=== PATIENT | male | born 1975 | race Two or more races ===

== ENCOUNTER 2021-01-08 13:34 | Inpatient (IN) | payer OTHER ==
[2021-01-08 19:24] VITALS: BMI 29.5
[2021-01-08] MEDS ORDERED: MAGNESIUM HYDROX 2400MG/30ML ORAL SUSPENSION 30 ML CUP PO PRN (20:12)
[2021-01-08] MEDS ORDERED: MAGNESIUM CITRATE 300 ML BOTTLE PO PRN (20:12)
[2021-01-08] MEDS ORDERED: MAG HYDROX/AL HYDROX/SIMETH 30 ML UNIT-DOSE CUP PO PRN (20:12)
[2021-01-08] MEDS ORDERED: BISMUTH SUBSALICYLATE 524 MG/30 ML PO PRN (20:12)
[2021-01-08] MEDS ORDERED: ACETAMINOPHEN 325 MG TABLET (FP) PO PRN (20:12)
[2021-01-08] MEDS ORDERED: MENTHOL/PHENOL 1 EACH UD MM PRN (20:12)
[2021-01-08] MEDS ORDERED: ONDANSETRON *ODT* 4 MG TABLET SL PRN (20:12)
[2021-01-08] MEDS ORDERED: methaDONE HCL 10 MG TABLET (FOR DETOX USE ONLY) PO ONE (20:25)
[2021-01-08] MEDS ORDERED: cloNIDine HCL 0.1 MG TABLET PO PRN (20:25)
[2021-01-09 08:32] LABS: HEMATOCRIT 43.3 % (35.4-49); HEMOGLOBIN 14.9 GM/dL (11.7-16.9); MCH 30.8 pg (25.7-33.7); MCHC 34.5 g/dl (32.0-35.9); MEAN CELL VOLUME 89.5 fl (80-96); MEAN PLT VOLUME 8.2 fl (7.5-11.1); PLATELET COUNT 232 10^3/uL (134-434); RBC 4.84 M/mm3 (4.00-5.60); WHITE BLOOD COUNT 7.7 K/mm3 (4.0-10.0)
[2021-01-09 09:20] LABS: ALBUMIN 3.5 g/dl (3.4-5.0); BILIRUBIN,TOTAL 0.7 mg/dL (0.2-1); BLOOD UREA NITROGEN 8.9 mg/dL (7-18); CALCIUM 8.8 mg/dL (8.5-10.1); CREATININE 0.9 mg/dL (0.55-1.3); TOT PROT 6.5 g/dl (6.4-8.2)
[2021-01-09] MEDS ORDERED: methaDONE HCL 10 MG TABLET (FOR DETOX USE ONLY) ONE (09:45)
[2021-01-09] MEDS: methaDONE HCL 10 MG TABLET (FOR DETOX USE ONLY) PO ONE ×2 (09:55→13:02)
[2021-01-09] MEDS: NICOTINE 21 MG/24 HOURS TOPICAL PATCH TD SCH (09:57)
[2021-01-09] MEDS: PRENATAL VITAMINS W/ FOLIC ACID TABLET (FP) PO SCH (09:57)
[2021-01-09] MEDS: MELATONIN 5 MG TABLETS PO SCH ×2 (13:25→22:54)
[2021-01-09] MEDS: THIAMINE HCL 100 MG TABLET (FP) PO SCH ×2 (13:26→22:54)
[2021-01-09] MEDS: METHOCARBAMOL 500 MG TABLET PO PRN (18:34)
[2021-01-09] MEDS: NICOTINE POLACRILEX 2 MG GUM BUC PRN (18:36)
[2021-01-10] MEDS ORDERED: methaDONE HCL 10 MG TABLET (FOR DETOX USE ONLY) ONE (10:10)
[2021-01-10] MEDS: METHOCARBAMOL 500 MG TABLET PO PRN ×2 (11:02→17:50)
[2021-01-10] MEDS: PRENATAL VITAMINS W/ FOLIC ACID TABLET (FP) PO SCH (11:02)
[2021-01-10] MEDS: NICOTINE 21 MG/24 HOURS TOPICAL PATCH TD SCH (11:29)
[2021-01-10] MEDS: NICOTINE POLACRILEX 2 MG GUM BUC PRN (17:51)
[2021-01-10] MEDS: THIAMINE HCL 100 MG TABLET (FP) PO SCH (22:36)
[2021-01-10] MEDS: MELATONIN 5 MG TABLETS PO SCH (22:39)
[2021-01-11] MEDS: ACETAMINOPHEN 325 MG TABLET (FP) PO PRN ×2 (09:16→17:30)
[2021-01-11] MEDS: METHOCARBAMOL 500 MG TABLET PO PRN ×3 (09:16→23:29)
[2021-01-11] MEDS ORDERED: methaDONE HCL 10 MG TABLET (FOR DETOX USE ONLY) PO ONE (10:00)
[2021-01-11] MEDS: NICOTINE 21 MG/24 HOURS TOPICAL PATCH TD SCH (12:05)
[2021-01-11] MEDS: PRENATAL VITAMINS W/ FOLIC ACID TABLET (FP) PO SCH (12:05)
[2021-01-11] MEDS ORDERED: methaDONE HCL 10 MG TABLET PO ONE (18:21)
[2021-01-11] MEDS: THIAMINE HCL 100 MG TABLET (FP) PO SCH (22:52)
[2021-01-11] MEDS: MELATONIN 5 MG TABLETS PO SCH ×2 (22:52→23:29)
[2021-01-12] MEDS ORDERED: methaDONE HCL 10 MG TABLET (FOR DETOX USE ONLY) ONE (08:53)
[2021-01-12] MEDS: NICOTINE 21 MG/24 HOURS TOPICAL PATCH TD SCH (09:08)
[2021-01-12] MEDS: PRENATAL VITAMINS W/ FOLIC ACID TABLET (FP) PO SCH (09:08)
[2021-01-12] MEDS: METHOCARBAMOL 500 MG TABLET PO PRN ×2 (09:08→17:30)
[2021-01-12] MEDS ORDERED: POTASSIUM CHLORIDE TABS 20 MEQ TABLET.ER (FP) PO ONE (11:09)
[2021-01-12] MEDS: LIDOCAINE 5% TOPICAL PATCH TP SCH (12:02)
[2021-01-12] MEDS: diazePAM 5 MG TABLET PO PRN ×2 (12:02→17:30)
[2021-01-12] MEDS: NICOTINE POLACRILEX 2 MG GUM BUC PRN (17:36)
[2021-01-12] MEDS ORDERED: LIDOCAINE PATCH REMOVAL MC SCH (22:00)
[2021-01-12] MEDS: THIAMINE HCL 100 MG TABLET (FP) PO SCH (22:18)
[2021-01-12] MEDS: MELATONIN 5 MG TABLETS PO SCH (22:18)
[2021-01-13 09:55] VITALS: BP 125/85; PULSE 77; TEMP 96.9
[2021-01-13] MEDS ORDERED: methaDONE HCL 10 MG TABLET (FOR DETOX USE ONLY) PO ONE (10:00)
[2021-01-13] MEDS: LIDOCAINE 5% TOPICAL PATCH TP SCH (10:22)
[2021-01-13] MEDS: NICOTINE 21 MG/24 HOURS TOPICAL PATCH TD SCH (10:23)
[2021-01-13] MEDS: PRENATAL VITAMINS W/ FOLIC ACID TABLET (FP) PO SCH (10:23)
[2021-01-13] MEDS: METHOCARBAMOL 500 MG TABLET PO PRN (10:24)
== END 2021-01-13 11:29 | disposition home or self-care (01) | DRG 773 ==
LOC: YASAS 13:34 → Y3N 01-09 11:56
PROVIDERS: ADMIT Allergy & Immunology; ATTEND Allergy & Immunology
PROC: HZ2ZZZZ Detoxification Services for Substance Abuse Treatment (ICD-10-PCS; principal; 2021-01-09)
DX: F11.23 Opioid dependence with withdrawal (principal); F10.20 Alcohol dependence, uncomplicated; F14.20 Cocaine dependence, uncomplicated; F17.210 Nicotine dependence, cigarettes, uncomplicated; E87.6 Hypokalemia; Z88.6 Allergy status to analgesic agent; Z91.018 Allergy to other foods
CPT/HCPCS: 36415; 80053; 84132; 85027; 86780; 93005; 93010; C9803; J0735; U0003; U0005

== ENCOUNTER 2021-02-22 12:07 | Inpatient (IN) | payer OTHER ==
[2021-02-22 13:20] VITALS: BMI 28.7
[2021-02-22] MEDS ORDERED: methaDONE HCL 10 MG TABLET (FOR DETOX USE ONLY) PO ONE (15:13)
[2021-02-22] MEDS ORDERED: MENTHOL/PHENOL 1 EACH UD MM PRN (15:13)
[2021-02-22] MEDS ORDERED: MAG HYDROX/AL HYDROX/SIMETH 30 ML UNIT-DOSE CUP PO PRN (15:13)
[2021-02-22] MEDS ORDERED: ACETAMINOPHEN 325 MG TABLET (FP) PO PRN ×2 (15:13)
[2021-02-22] MEDS ORDERED: MAGNESIUM CITRATE 300 ML BOTTLE PO PRN (15:13)
[2021-02-22] MEDS ORDERED: cloNIDine HCL 0.1 MG TABLET PO PRN (15:13)
[2021-02-22] MEDS ORDERED: MAGNESIUM HYDROX 2400MG/30ML ORAL SUSPENSION 30 ML CUP PO PRN (15:13)
[2021-02-22] MEDS ORDERED: NALOXONE (NARCAN) HCL 4 MG/0.1 ML SPRAY NS PRN (15:13)
[2021-02-22] MEDS ORDERED: NICOTINE 10 MG CARTRIDGE (INHALER) IH PRN (15:13)
[2021-02-22] MEDS: diazePAM 5 MG TABLET PO SCH ×2 (16:32→22:07)
[2021-02-22] MEDS: NICOTINE POLACRILEX 2 MG GUM BUC PRN ×2 (18:38→21:02)
[2021-02-22] MEDS: diazePAM 5 MG TABLET PO PRN (19:47)
[2021-02-22] MEDS: METHOCARBAMOL 500 MG TABLET PO PRN (22:07)
[2021-02-22] MEDS: MELATONIN 5 MG TABLETS PO SCH (22:07)
[2021-02-22] MEDS: THIAMINE HCL 100 MG TABLET (FP) PO SCH (22:07)
[2021-02-23] MEDS: diazePAM 5 MG TABLET PO SCH ×4 (05:05→22:00)
[2021-02-23] MEDS ORDERED: methaDONE HCL 10 MG TABLET (FOR DETOX USE ONLY) ONE (09:07)
[2021-02-23] MEDS: PRENATAL VITAMINS W/ FOLIC ACID TABLET (FP) PO SCH (10:07)
[2021-02-23 10:54] LABS: HEMATOCRIT 42.4 % (35.4-49); HEMOGLOBIN 14.4 GM/dL (11.7-16.9); MCH 31.5 pg (25.7-33.7); MCHC 33.9 g/dl (32.0-35.9); MEAN CELL VOLUME 92.9 fl (80-96); MEAN PLT VOLUME 8.3 fl (7.5-11.1); PLATELET COUNT 219 10^3/uL (134-434); RBC 4.57 M/mm3 (4.00-5.60); RDW 14.9 % (11.9-15.9); WHITE BLOOD COUNT 8.5 K/mm3 (4.0-10.0)
[2021-02-23] MEDS: NICOTINE POLACRILEX 2 MG GUM BUC PRN ×4 (11:08→22:02)
[2021-02-23 11:13] LABS: ALBUMIN 2.8 g/dl (3.4-5.0); BLOOD UREA NITROGEN 7.6 mg/dL (7-18)
[2021-02-23 11:16] LABS: CREATININE 0.8 mg/dL (0.55-1.3)
[2021-02-23 11:17] LABS: BILIRUBIN,TOTAL 0.3 mg/dL (0.2-1); TOT PROT 5.6 g/dl (6.4-8.2)
[2021-02-23] MEDS: diazePAM 5 MG TABLET PO PRN (13:16)
[2021-02-23] MEDS: THIAMINE HCL 100 MG TABLET (FP) PO SCH (22:00)
[2021-02-23] MEDS: MELATONIN 5 MG TABLETS PO SCH (22:00)
[2021-02-23] MEDS: METHOCARBAMOL 500 MG TABLET PO PRN (22:01)
[2021-02-24] MEDS: diazePAM 5 MG TABLET PO SCH ×3 (05:05→22:04)
[2021-02-24] MEDS: NICOTINE POLACRILEX 2 MG GUM BUC PRN ×5 (05:07→22:07)
[2021-02-24] MEDS ORDERED: methaDONE HCL 10 MG TABLET (FOR DETOX USE ONLY) PO ONE (10:00)
[2021-02-24] MEDS: PRENATAL VITAMINS W/ FOLIC ACID TABLET (FP) PO SCH (10:10)
[2021-02-24] MEDS: METHOCARBAMOL 500 MG TABLET PO PRN ×2 (10:10→22:06)
[2021-02-24] MEDS: diazePAM 5 MG TABLET PO PRN (17:41)
[2021-02-24] MEDS: THIAMINE HCL 100 MG TABLET (FP) PO SCH (22:04)
[2021-02-24] MEDS: MELATONIN 5 MG TABLETS PO SCH (22:04)
[2021-02-25] MEDS: diazePAM 5 MG TABLET PO SCH ×2 (05:34→17:41)
[2021-02-25] MEDS: NICOTINE POLACRILEX 2 MG GUM BUC PRN ×5 (05:36→22:06)
[2021-02-25] MEDS ORDERED: methaDONE HCL 10 MG TABLET (FOR DETOX USE ONLY) ONE (08:57)
[2021-02-25] MEDS: PRENATAL VITAMINS W/ FOLIC ACID TABLET (FP) PO SCH (10:19)
[2021-02-25] MEDS: diazePAM 5 MG TABLET PO PRN ×2 (10:23→14:48)
[2021-02-25] MEDS: METHOCARBAMOL 500 MG TABLET PO PRN (22:04)
[2021-02-25] MEDS: MELATONIN 5 MG TABLETS PO SCH (22:04)
[2021-02-25] MEDS: THIAMINE HCL 100 MG TABLET (FP) PO SCH (22:04)
[2021-02-26] MEDS ORDERED: diazePAM 5 MG TABLET PO ONE (06:00)
[2021-02-26] MEDS ORDERED: methaDONE HCL 10 MG TABLET (FOR DETOX USE ONLY) PO ONE (10:00)
[2021-02-26] MEDS: PRENATAL VITAMINS W/ FOLIC ACID TABLET (FP) PO SCH (10:09)
[2021-02-26] MEDS: NICOTINE POLACRILEX 2 MG GUM BUC PRN ×4 (12:01→22:27)
[2021-02-26] MEDS: MELATONIN 5 MG TABLETS PO SCH (22:27)
[2021-02-26] MEDS: THIAMINE HCL 100 MG TABLET (FP) PO SCH (22:27)
[2021-02-26] MEDS: METHOCARBAMOL 500 MG TABLET PO PRN (22:27)
[2021-02-27 08:49] VITALS: BP 124/73; PULSE 75; TEMP 96.9
== END 2021-02-27 09:55 | disposition home or self-care (01) | DRG 773 ==
LOC: YASAS 12:07 → Y3N 15:33
PROVIDERS: ADMIT Allergy & Immunology; ATTEND Allergy & Immunology
PROC: HZ2ZZZZ Detoxification Services for Substance Abuse Treatment (ICD-10-PCS; principal; 2021-02-22)
DX: F11.23 Opioid dependence with withdrawal (principal); F10.230 Alcohol dependence with withdrawal, uncomplicated; F14.20 Cocaine dependence, uncomplicated; F13.20 Sedative, hypnotic or anxiolytic dependence, uncomplicated; F17.210 Nicotine dependence, cigarettes, uncomplicated; F19.24 Other psychoactive substance dependence with psychoactive substance-induced mood disorder; G47.00 Insomnia, unspecified; M54.50 Low back pain, unspecified; G89.29 Other chronic pain; Z56.0 Unemployment, unspecified; Z59.00 Homelessness unspecified; Z88.6 Allergy status to analgesic agent
CPT/HCPCS: 36415; 80053; 85027; 86780; C9803; U0003; U0005

== ENCOUNTER 2022-01-15 16:54 | Inpatient (IN) | payer OTHER ==
[2022-01-15 21:16] VITALS: BMI 30.1
[2022-01-16] MEDS ORDERED: methaDONE HCL 10 MG TABLET (FOR DETOX USE ONLY) PO ONE (01:11)
[2022-01-16] MEDS ORDERED: ACETAMINOPHEN 325 MG TABLET (FP) PO PRN (01:11)
[2022-01-16] MEDS ORDERED: BENZOCAINE/MENTHOL (CHLORASEPTIC ) LOZENGE MM PRN (01:11)
[2022-01-16] MEDS ORDERED: NALOXONE HCL (KLOXXADO) 8 MG SPRAY NS PRN (01:11)
[2022-01-16] MEDS ORDERED: MAGNESIUM CITRATE 300 ML BOTTLE PO PRN (01:11)
[2022-01-16] MEDS ORDERED: MAGNESIUM HYDROX 2400MG/30ML ORAL SUSPENSION 30 ML CUP PO PRN (01:11)
[2022-01-16] MEDS ORDERED: LOPERAMIDE HCL 2 MG CAPSULE PO PRN (01:11)
[2022-01-16] MEDS ORDERED: MAG HYDROX/AL HYDROX/SIMETH 30 ML UNIT-DOSE CUP PO PRN (01:11)
[2022-01-16] MEDS ORDERED: DICYCLOMINE HCL 10 MG CAPSULE PO PRN (01:11)
[2022-01-16] MEDS: NICOTINE 14 MG/24 HOURS TOPICAL PATCH TD SCH (11:03)
[2022-01-16] MEDS: PRENATAL VITAMINS W/ FOLIC ACID TABLET (FP) PO SCH (11:04)
[2022-01-16] MEDS: NICOTINE POLACRILEX 2 MG GUM BUC PRN (17:05)
[2022-01-16] MEDS: THIAMINE HCL 100 MG TABLET (FP) PO SCH (22:48)
[2022-01-16] MEDS: MELATONIN 5 MG TABLETS PO SCH (22:48)
[2022-01-16] MEDS: METHOCARBAMOL 500 MG TABLET PO PRN (22:48)
[2022-01-17] MEDS: cloNIDine HCL 0.1 MG TABLET PO PRN ×2 (05:46→12:21)
[2022-01-17] MEDS: NICOTINE 14 MG/24 HOURS TOPICAL PATCH TD SCH (10:43)
[2022-01-17] MEDS: PRENATAL VITAMINS W/ FOLIC ACID TABLET (FP) PO SCH (10:43)
[2022-01-17] MEDS: METHOCARBAMOL 500 MG TABLET PO PRN ×2 (12:21→22:33)
[2022-01-17] MEDS ORDERED: hydrOXYzine PAMOATE 50 MG CAPSULE (FP) PO ONE (12:22)
[2022-01-17] MEDS: NICOTINE POLACRILEX 2 MG GUM BUC PRN ×4 (12:23→22:34)
[2022-01-17 13:31] LABS: HEMATOCRIT 43.5 % (35.4-49); HEMOGLOBIN 14.7 GM/dL (11.7-16.9); MCH 31.1 pg (25.7-33.7); MCHC 33.8 g/dl (32.0-35.9); MEAN CELL VOLUME 91.9 fl (80-96); PLATELET COUNT 242 10^3/uL (134-434); RBC 4.73 M/mm3 (4.00-5.60); RDW 14.2 % (11.9-15.9); WHITE BLOOD COUNT 10.3 K/mm3 (4.0-10.0)
[2022-01-17 13:33] LABS: ALBUMIN 3.3 g/dl (3.4-5.0); BLOOD UREA NITROGEN 7.6 mg/dL (7-18); CALCIUM 8.9 mg/dL (8.5-10.1)
[2022-01-17 13:38] LABS: BILIRUBIN,TOTAL 0.4 mg/dL (0.2-1); TOT PROT 5.7 g/dl (6.4-8.2)
[2022-01-17] MEDS: MELATONIN 5 MG TABLETS PO SCH (22:31)
[2022-01-17] MEDS: THIAMINE HCL 100 MG TABLET (FP) PO SCH (22:31)
[2022-01-17] MEDS: hydrOXYzine PAMOATE 25 MG CAPSULE (FP) PO PRN (22:32)
[2022-01-18] MEDS ORDERED: methaDONE HCL 10 MG TABLET (FOR DETOX USE ONLY) PO ONE (10:00)
[2022-01-18] MEDS: PRENATAL VITAMINS W/ FOLIC ACID TABLET (FP) PO SCH (10:38)
[2022-01-18] MEDS: NICOTINE 14 MG/24 HOURS TOPICAL PATCH TD SCH (10:38)
[2022-01-18] MEDS: METHOCARBAMOL 500 MG TABLET PO PRN ×2 (10:40→20:05)
[2022-01-18] MEDS: ACETAMINOPHEN 325 MG TABLET (FP) PO PRN (10:41)
[2022-01-18] MEDS: NICOTINE POLACRILEX 2 MG GUM BUC PRN ×4 (12:01→22:35)
[2022-01-18] MEDS: cloNIDine HCL 0.1 MG TABLET PO PRN (15:53)
[2022-01-18] MEDS: diazePAM 5 MG TABLET PO PRN ×2 (15:54→20:05)
[2022-01-18] MEDS: MELATONIN 5 MG TABLETS PO SCH (22:33)
[2022-01-18] MEDS: THIAMINE HCL 100 MG TABLET (FP) PO SCH (22:34)
[2022-01-18] MEDS: hydrOXYzine PAMOATE 25 MG CAPSULE (FP) PO PRN (22:34)
[2022-01-19] MEDS: NICOTINE 14 MG/24 HOURS TOPICAL PATCH TD SCH (10:10)
[2022-01-19] MEDS: ACETAMINOPHEN 325 MG TABLET (FP) PO PRN (10:13)
[2022-01-19] MEDS: METHOCARBAMOL 500 MG TABLET PO PRN ×2 (10:14→22:31)
[2022-01-19] MEDS: PRENATAL VITAMINS W/ FOLIC ACID TABLET (FP) PO SCH (11:19)
[2022-01-19] MEDS: diazePAM 5 MG TABLET PO PRN ×2 (12:44→22:31)
[2022-01-19] MEDS: hydrOXYzine PAMOATE 25 MG CAPSULE (FP) PO PRN ×2 (12:46→22:31)
[2022-01-19] MEDS: NICOTINE POLACRILEX 2 MG GUM BUC PRN (12:48)
[2022-01-19] MEDS: MELATONIN 5 MG TABLETS PO SCH (22:31)
[2022-01-19] MEDS: THIAMINE HCL 100 MG TABLET (FP) PO SCH (22:32)
[2022-01-20] MEDS ORDERED: methaDONE HCL 10 MG TABLET (FOR DETOX USE ONLY) PO ONE (10:00)
[2022-01-20] MEDS: PRENATAL VITAMINS W/ FOLIC ACID TABLET (FP) PO SCH (10:46)
[2022-01-20] MEDS: NICOTINE 14 MG/24 HOURS TOPICAL PATCH TD SCH (10:47)
[2022-01-20] MEDS: LIDOCAINE 5% TOPICAL PATCH TP SCH (10:53)
[2022-01-20] MEDS ORDERED: diazePAM 5 MG TABLET PO ONE (11:15)
[2022-01-20] MEDS: NICOTINE POLACRILEX 2 MG GUM BUC PRN ×4 (12:29→22:35)
[2022-01-20 21:18] VITALS: RESP 18
[2022-01-20] MEDS ORDERED: LIDOCAINE PATCH REMOVAL MC SCH (22:00)
[2022-01-20] MEDS: hydrOXYzine PAMOATE 25 MG CAPSULE (FP) PO PRN (22:33)
[2022-01-20] MEDS: THIAMINE HCL 100 MG TABLET (FP) PO SCH (22:33)
[2022-01-20] MEDS: MELATONIN 5 MG TABLETS PO SCH (22:34)
[2022-01-20] MEDS: METHOCARBAMOL 500 MG TABLET PO PRN (22:35)
[2022-01-21 09:46] VITALS: BP 141/87; PULSE 74; TEMP 97.5
[2022-01-21] MEDS: LIDOCAINE 5% TOPICAL PATCH TP SCH (11:21)
[2022-01-21] MEDS: NICOTINE 14 MG/24 HOURS TOPICAL PATCH TD SCH (11:21)
[2022-01-21] MEDS: PRENATAL VITAMINS W/ FOLIC ACID TABLET (FP) PO SCH (11:22)
== END 2022-01-21 10:52 | disposition home or self-care (01) | DRG 773 ==
LOC: YASAS 16:54 → Y6N 01-16 01:23
PROVIDERS: ADMIT Allergy & Immunology; ATTEND Surgery
PROC: HZ2ZZZZ Detoxification Services for Substance Abuse Treatment (ICD-10-PCS; principal; 2022-01-16)
DX: F11.23 Opioid dependence with withdrawal (principal); F14.20 Cocaine dependence, uncomplicated; F17.210 Nicotine dependence, cigarettes, uncomplicated; M54.50 Low back pain, unspecified; G89.29 Other chronic pain; Z88.6 Allergy status to analgesic agent
CPT/HCPCS: 36415; 80053; 85027; 86780; 93005; 93010; C9803-CS; U0003; U0005

== ENCOUNTER 2022-03-04 10:02 | Inpatient (IN) | payer OTHER ==
[2022-03-04 12:51] VITALS: BMI 24.3
[2022-03-04] MEDS ORDERED: MAG HYDROX/AL HYDROX/SIMETH 30 ML UNIT-DOSE CUP PO PRN (14:46)
[2022-03-04] MEDS ORDERED: BENZOCAINE/MENTHOL (CHLORASEPTIC ) LOZENGE MM PRN (14:46)
[2022-03-04] MEDS ORDERED: hydrOXYzine PAMOATE 25 MG CAPSULE (FP) PO PRN (14:46)
[2022-03-04] MEDS ORDERED: ONDANSETRON *ODT* 4 MG TABLET SL PRN (14:46)
[2022-03-04] MEDS ORDERED: NALOXONE HCL (KLOXXADO) 8 MG SPRAY NS PRN (14:46)
[2022-03-04] MEDS ORDERED: DICYCLOMINE HCL 10 MG CAPSULE PO PRN (14:46)
[2022-03-04] MEDS ORDERED: NICOTINE 10 MG CARTRIDGE (INHALER) IH PRN (14:46)
[2022-03-04] MEDS ORDERED: MAGNESIUM HYDROX 2400MG/30ML ORAL SUSPENSION 30 ML CUP PO PRN (14:46)
[2022-03-04] MEDS ORDERED: ACETAMINOPHEN 325 MG TABLET (FP) PO PRN ×2 (14:46)
[2022-03-04] MEDS ORDERED: MAGNESIUM CITRATE 300 ML BOTTLE PO PRN (14:46)
[2022-03-04] MEDS ORDERED: LOPERAMIDE HCL 2 MG CAPSULE PO PRN (14:46)
[2022-03-04] MEDS ORDERED: hydrOXYzine PAMOATE 25 MG CAPSULE (FP) PO ONE (18:01)
[2022-03-04] MEDS ORDERED: methaDONE HCL 10 MG TABLET (FOR DETOX USE ONLY) PO ONE (18:21)
[2022-03-04] MEDS ORDERED: chlordiazePOXIDE HCL 25 MG CAPSULE PO PRN (18:21)
[2022-03-04] MEDS ORDERED: cloNIDine HCL 0.1 MG TABLET PO PRN (18:21)
[2022-03-04] MEDS ORDERED: chlordiazePOXIDE HCL 25 MG CAPSULE PO ONE (18:21)
[2022-03-04] MEDS: MELATONIN 5 MG TABLETS PO SCH (22:03)
[2022-03-04] MEDS: THIAMINE HCL 100 MG TABLET (FP) PO SCH (22:03)
[2022-03-04] MEDS ORDERED: chlordiazePOXIDE HCL 25 MG CAPSULE ONE (22:17)
[2022-03-04] MEDS: chlordiazePOXIDE HCL 25 MG CAPSULE PO SCH (22:17)
[2022-03-05] MEDS ORDERED: chlordiazePOXIDE HCL 25 MG CAPSULE ONE (05:38)
[2022-03-05] MEDS: chlordiazePOXIDE HCL 25 MG CAPSULE PO SCH ×4 (05:38→22:49)
[2022-03-05] MEDS: PRENATAL VITAMINS W/ FOLIC ACID TABLET (FP) PO SCH (10:38)
[2022-03-05] MEDS: NICOTINE POLACRILEX 2 MG GUM BUC PRN ×4 (10:38→20:58)
[2022-03-05] MEDS: METHOCARBAMOL 500 MG TABLET PO PRN ×2 (10:38→19:52)
[2022-03-05] MEDS: THIAMINE HCL 100 MG TABLET (FP) PO SCH (22:49)
[2022-03-05] MEDS: MELATONIN 5 MG TABLETS PO SCH (22:49)
[2022-03-06] MEDS: chlordiazePOXIDE HCL 25 MG CAPSULE PO SCH ×4 (06:18→22:35)
[2022-03-06] MEDS ORDERED: methaDONE HCL 10 MG TABLET (FOR DETOX USE ONLY) PO ONE (10:00)
[2022-03-06] MEDS: PRENATAL VITAMINS W/ FOLIC ACID TABLET (FP) PO SCH (10:52)
[2022-03-06] MEDS: METHOCARBAMOL 500 MG TABLET PO PRN (10:52)
[2022-03-06 13:06] LABS: HEMATOCRIT 47.2 % (35.4-49); HEMOGLOBIN 15.7 GM/dL (11.7-16.9); MCH 31.5 pg (25.7-33.7); MCHC 33.3 g/dl (32.0-35.9); MEAN CELL VOLUME 94.6 fl (80-96); MEAN PLT VOLUME 8.5 fl (7.5-11.1); PLATELET COUNT 239 10^3/uL (134-434); RBC 4.99 M/mm3 (4.00-5.60); RDW 14.6 % (11.9-15.9); WHITE BLOOD COUNT 6.9 K/mm3 (4.0-10.0)
[2022-03-06 13:13] LABS: ALBUMIN 3.4 g/dl (3.4-5.0); CALCIUM 9.7 mg/dL (8.5-10.1)
[2022-03-06 13:16] LABS: CREATININE 0.8 mg/dL (0.55-1.3)
[2022-03-06 13:17] LABS: TOT PROT 6.1 g/dl (6.4-8.2)
[2022-03-06 13:18] LABS: BILIRUBIN,TOTAL 0.4 mg/dL (0.2-1)
[2022-03-06] MEDS: NICOTINE POLACRILEX 2 MG GUM BUC PRN ×2 (13:28→17:50)
[2022-03-06] MEDS: MELATONIN 5 MG TABLETS PO SCH (22:35)
[2022-03-06] MEDS: THIAMINE HCL 100 MG TABLET (FP) PO SCH (22:36)
[2022-03-07] MEDS ORDERED: chlordiazePOXIDE HCL 10 MG CAPSULE PO PRN
[2022-03-07] MEDS: chlordiazePOXIDE HCL 10 MG CAPSULE PO SCH ×4 (05:54→22:07)
[2022-03-07] MEDS: NICOTINE POLACRILEX 2 MG GUM BUC PRN ×3 (08:30→20:33)
[2022-03-07] MEDS: PRENATAL VITAMINS W/ FOLIC ACID TABLET (FP) PO SCH (10:24)
[2022-03-07] MEDS: MELATONIN 5 MG TABLETS PO SCH (22:06)
[2022-03-07] MEDS: THIAMINE HCL 100 MG TABLET (FP) PO SCH (22:07)
[2022-03-07] MEDS: METHOCARBAMOL 500 MG TABLET PO PRN (22:07)
[2022-03-08] MEDS: chlordiazePOXIDE HCL 10 MG CAPSULE PO SCH ×2 (06:21→17:36)
[2022-03-08] MEDS ORDERED: methaDONE HCL 10 MG TABLET (FOR DETOX USE ONLY) PO ONE (10:00)
[2022-03-08] MEDS: PRENATAL VITAMINS W/ FOLIC ACID TABLET (FP) PO SCH (10:36)
[2022-03-08] MEDS: METHOCARBAMOL 500 MG TABLET PO PRN (10:36)
[2022-03-08] MEDS: NICOTINE POLACRILEX 2 MG GUM BUC PRN ×3 (10:38→22:36)
[2022-03-08] MEDS: MELATONIN 5 MG TABLETS PO SCH (22:29)
[2022-03-08] MEDS: THIAMINE HCL 100 MG TABLET (FP) PO SCH (22:29)
[2022-03-09] MEDS ORDERED: chlordiazePOXIDE HCL 10 MG CAPSULE PO ONE (05:00)
[2022-03-09 08:41] VITALS: RESP 18
[2022-03-09 09:14] VITALS: BP 134/92; PULSE 79; TEMP 98.1
[2022-03-09] MEDS: METHOCARBAMOL 500 MG TABLET PO PRN (10:57)
[2022-03-09] MEDS: PRENATAL VITAMINS W/ FOLIC ACID TABLET (FP) PO SCH (10:57)
[2022-03-09] MEDS ORDERED: diazePAM 5 MG TABLET PO ONE (11:00)
== END 2022-03-09 12:35 | disposition other institution (70) | DRG 773 ==
LOC: YASAS 10:02 → Y6N 03-05 10:01
PROVIDERS: ADMIT Allergy & Immunology; ATTEND Surgery
PROC: HZ2ZZZZ Detoxification Services for Substance Abuse Treatment (ICD-10-PCS; principal; 2022-03-05)
DX: F11.23 Opioid dependence with withdrawal (principal); F10.230 Alcohol dependence with withdrawal, uncomplicated; F14.20 Cocaine dependence, uncomplicated; F12.20 Cannabis dependence, uncomplicated; F17.210 Nicotine dependence, cigarettes, uncomplicated; Z88.6 Allergy status to analgesic agent; Z91.014 Allergy to mammalian meats
CPT/HCPCS: 36415; 80053; 82962; 85027; 86780; 87811; C9803-CS; U0003; U0005

== ENCOUNTER 2022-03-09 12:38 | Inpatient (IN) | payer OTHER ==
[2022-03-09] MEDS ORDERED: MAGNESIUM HYDROX 2400MG/30ML ORAL SUSPENSION 30 ML CUP PO PRN (13:26)
[2022-03-09] MEDS ORDERED: NICOTINE POLACRILEX 2 MG GUM BUC PRN (13:26)
[2022-03-09] MEDS ORDERED: ACETAMINOPHEN 325 MG TABLET (FP) PO PRN (13:26)
[2022-03-09] MEDS ORDERED: P-EPHED 60MG/TRIPROLIDI 2.5MG TABLET PO PRN (13:26)
[2022-03-09] MEDS ORDERED: MAG HYDROX/AL HYDROX/SIMETH 30 ML UNIT-DOSE CUP PO PRN (13:26)
[2022-03-09] MEDS ORDERED: guaiFENesin 200 MG/10 ML 10 ML UNIT-DOSE CUPS PO PRN (13:26)
[2022-03-09] MEDS ORDERED: IBUPROFEN 400 MG TABLET (FP) PO PRN (13:26)
[2022-03-09] MEDS ORDERED: MAGNESIUM CITRATE 300 ML BOTTLE PO PRN (13:26)
[2022-03-09] MEDS ORDERED: BENZOCAINE/MENTHOL (CHLORASEPTIC ) LOZENGE MM PRN (13:26)
[2022-03-09] MEDS ORDERED: LOPERAMIDE HCL 2 MG CAPSULE PO PRN (13:26)
[2022-03-09] MEDS ORDERED: NICOTINE 10 MG CARTRIDGE (INHALER) IH PRN (13:26)
[2022-03-09] MEDS: MELATONIN 5 MG TABLETS PO SCH (22:05)
[2022-03-09] MEDS: THIAMINE HCL 100 MG TABLET (FP) PO SCH (22:06)
[2022-03-10] MEDS: PRENATAL VITAMINS W/ FOLIC ACID TABLET (FP) PO SCH (10:10)
[2022-03-10] MEDS ORDERED: BUPRENORPHINE HCL 150 MCG, BUPRENORPHINE HCL 75 MCG BC ONE (11:24)
[2022-03-10] MEDS ORDERED: BUPRENORPHINE HCL 150 MCG, BUPRENORPHINE HCL 75 MCG BC PRN (11:24)
[2022-03-10] MEDS ORDERED: cloNIDine HCL 0.1 MG TABLET PO ONE (11:24)
[2022-03-10] MEDS ORDERED: FLU VACC QS2022-23(6MOS UP)/PF 60 MCG/0.5 ML SYRINGE IM ONE (12:00)
[2022-03-10] MEDS ORDERED: cloNIDine HCL 0.1 MG TABLET PO PRN (15:24)
[2022-03-10] MEDS: THIAMINE HCL 100 MG TABLET (FP) PO SCH (21:21)
[2022-03-10] MEDS: MELATONIN 5 MG TABLETS PO SCH (21:21)
[2022-03-11] MEDS ORDERED: BUPRENORPHINE HCL 150 MCG, BUPRENORPHINE HCL 75 MCG BC PRN
[2022-03-11] MEDS: BUPRENORPHINE HCL 150 MCG, BUPRENORPHINE HCL 75 MCG BC SCH ×2 (07:48→18:36)
[2022-03-11] MEDS: PRENATAL VITAMINS W/ FOLIC ACID TABLET (FP) PO SCH (09:32)
[2022-03-11] MEDS: THIAMINE HCL 100 MG TABLET (FP) PO SCH (21:20)
[2022-03-11] MEDS: hydrOXYzine PAMOATE 25 MG CAPSULE (FP) PO PRN (21:20)
[2022-03-11] MEDS: MELATONIN 5 MG TABLETS PO SCH (21:20)
[2022-03-12] MEDS ORDERED: BUPRENORPHINE HCL 450 MCG FILM BC SCH (06:00)
[2022-03-12 06:49] VITALS: RESP 18
[2022-03-12] MEDS: PRENATAL VITAMINS W/ FOLIC ACID TABLET (FP) PO SCH (10:36)
[2022-03-12] MEDS: MELATONIN 5 MG TABLETS PO SCH (21:08)
[2022-03-12] MEDS: hydrOXYzine PAMOATE 25 MG CAPSULE (FP) PO PRN (21:08)
[2022-03-12] MEDS: THIAMINE HCL 100 MG TABLET (FP) PO SCH (21:08)
[2022-03-13] MEDS ORDERED: BUPRENORPHINE/NALOXONE 4 MG/1 MG FILM PACKET SL SCH (06:00)
[2022-03-13 09:35] VITALS: BP 107/73; PULSE 71; TEMP 97.1
[2022-03-14] MEDS ORDERED: BUPRENORPHINE/NALOXONE 8 MG/2 MG FILM PACKET SL ONE (06:00)
== END 2022-03-13 17:22 | disposition home or self-care (01) | DRG 772 ==
LOC: YASAS 12:38 → Y3E 12:39
PROVIDERS: ADMIT Allergy & Immunology; ATTEND Psychiatry & Neurology Pain Medicine
PROC: HZ42ZZZ Group Counseling for Substance Abuse Treatment, Cognitive-Behavioral (ICD-10-PCS; principal; 2022-03-09)
DX: F11.20 Opioid dependence, uncomplicated (principal); F10.20 Alcohol dependence, uncomplicated; F14.20 Cocaine dependence, uncomplicated; F12.20 Cannabis dependence, uncomplicated; F17.210 Nicotine dependence, cigarettes, uncomplicated
CPT/HCPCS: 93005; 93010; G0008; Q2036

== ENCOUNTER 2022-04-07 18:17 | Inpatient (IN) | payer OTHER ==
[2022-04-07 20:48] VITALS: BMI 30.1
[2022-04-07] MEDS ORDERED: NALOXONE HCL (KLOXXADO) 8 MG SPRAY NS PRN (22:04)
[2022-04-07] MEDS ORDERED: hydrOXYzine PAMOATE 25 MG CAPSULE (FP) PO PRN (22:04)
[2022-04-07] MEDS ORDERED: MAG HYDROX/AL HYDROX/SIMETH 30 ML UNIT-DOSE CUP PO PRN (22:04)
[2022-04-07] MEDS ORDERED: LOPERAMIDE HCL 2 MG CAPSULE PO PRN (22:04)
[2022-04-07] MEDS ORDERED: BENZOCAINE/MENTHOL (CHLORASEPTIC ) LOZENGE MM PRN (22:04)
[2022-04-07] MEDS ORDERED: POLYETHYLENE GLYCOL (HEALTHYLAX) 3350 17 GM PACKET PO PRN (22:04)
[2022-04-07] MEDS ORDERED: DICYCLOMINE HCL 10 MG CAPSULE PO PRN (22:04)
[2022-04-07] MEDS ORDERED: ONDANSETRON *ODT* 4 MG TABLET SL PRN (22:04)
[2022-04-07] MEDS ORDERED: ACETAMINOPHEN 325 MG TABLET (FP) PO PRN ×2 (22:04)
[2022-04-07] MEDS ORDERED: MAGNESIUM HYDROX 2400MG/30ML ORAL SUSPENSION 30 ML CUP PO PRN (22:04)
[2022-04-08] MEDS ORDERED: cloNIDine HCL 0.1 MG TABLET PO PRN (09:47)
[2022-04-08] MEDS ORDERED: methaDONE HCL 10 MG TABLET (FOR DETOX USE ONLY) PO ONE (09:47)
[2022-04-08 10:18] LABS: HEMATOCRIT 44.2 % (35.4-49); HEMOGLOBIN 14.6 GM/dL (11.7-16.9); MCH 30.8 pg (25.7-33.7); MEAN CELL VOLUME 93.4 fl (80-96); MEAN PLT VOLUME 8.2 fl (7.5-11.1); PLATELET COUNT 263 10^3/uL (134-434); RBC 4.74 M/mm3 (4.00-5.60); WHITE BLOOD COUNT 7.2 K/mm3 (4.0-10.0)
[2022-04-08] MEDS: PRENATAL VITAMINS W/ FOLIC ACID TABLET (FP) PO SCH (10:36)
[2022-04-08] MEDS: NICOTINE 14 MG/24 HOURS TOPICAL PATCH TD SCH (10:41)
[2022-04-08] MEDS: NICOTINE POLACRILEX 2 MG GUM BUC PRN ×3 (10:41→22:16)
[2022-04-08 10:43] LABS: ALBUMIN 3.3 g/dl (3.4-5.0); BLOOD UREA NITROGEN 6.9 mg/dL (7-18); CALCIUM 9.1 mg/dL (8.5-10.1)
[2022-04-08 10:48] LABS: BILIRUBIN,TOTAL 0.4 mg/dL (0.2-1); TOT PROT 5.8 g/dl (6.4-8.2)
[2022-04-08 10:49] LABS: CREATININE 0.8 mg/dL (0.55-1.3)
[2022-04-08] MEDS: MELATONIN 5 MG TABLETS PO SCH (22:14)
[2022-04-08] MEDS: THIAMINE HCL 100 MG TABLET (FP) PO SCH (22:14)
[2022-04-08] MEDS: METHOCARBAMOL 500 MG TABLET PO PRN (22:15)
[2022-04-09] MEDS: PRENATAL VITAMINS W/ FOLIC ACID TABLET (FP) PO SCH (09:45)
[2022-04-09] MEDS: diazePAM 5 MG TABLET PO PRN ×3 (09:46→22:19)
[2022-04-09] MEDS: NICOTINE POLACRILEX 2 MG GUM BUC PRN ×2 (09:49→22:23)
[2022-04-09] MEDS: NICOTINE 14 MG/24 HOURS TOPICAL PATCH TD SCH (09:49)
[2022-04-09 18:04] LABS: PH,URINE 7.5 (5.0-8.0); URINE APPEARANCE CLEAR; URINE BILIRUBIN NEGATIVE (NEGATIVE); URINE COLOR YELLOW; URINE GLUCOSE (UA) NEGATIVE (NEGATIVE); URINE KETONE NEGATIVE (NEGATIVE); URINE LEUK ESTERASE NEGATIVE (NEGATIVE); URINE NITRITE NEGATIVE (NEGATIVE); URINE PROTEIN NEGATIVE (NEGATIVE); URINE UROBILINOGEN 0.2 mg/dL (0.2-1.0)
[2022-04-09] MEDS: THIAMINE HCL 100 MG TABLET (FP) PO SCH (22:20)
[2022-04-09] MEDS: MELATONIN 5 MG TABLETS PO SCH (22:20)
[2022-04-09] MEDS: METHOCARBAMOL 500 MG TABLET PO PRN (22:21)
[2022-04-10] MEDS: NICOTINE POLACRILEX 2 MG GUM BUC PRN ×4 (02:51→22:22)
[2022-04-10] MEDS ORDERED: methaDONE HCL 10 MG TABLET (FOR DETOX USE ONLY) PO ONE (10:00)
[2022-04-10] MEDS: PRENATAL VITAMINS W/ FOLIC ACID TABLET (FP) PO SCH (10:43)
[2022-04-10] MEDS: METHOCARBAMOL 500 MG TABLET PO PRN (10:43)
[2022-04-10] MEDS: NICOTINE 14 MG/24 HOURS TOPICAL PATCH TD SCH (10:43)
[2022-04-10] MEDS: diazePAM 5 MG TABLET PO PRN ×3 (10:46→22:20)
[2022-04-10] MEDS: THIAMINE HCL 100 MG TABLET (FP) PO SCH (22:17)
[2022-04-10] MEDS: MELATONIN 5 MG TABLETS PO SCH (22:17)
[2022-04-11] MEDS: NICOTINE 14 MG/24 HOURS TOPICAL PATCH TD SCH (10:19)
[2022-04-11] MEDS: PRENATAL VITAMINS W/ FOLIC ACID TABLET (FP) PO SCH (10:20)
[2022-04-11] MEDS: METHOCARBAMOL 500 MG TABLET PO PRN ×2 (10:20→23:04)
[2022-04-11] MEDS: NICOTINE POLACRILEX 2 MG GUM BUC PRN ×3 (10:26→19:12)
[2022-04-11] MEDS: MELATONIN 5 MG TABLETS PO SCH ×2 (23:00→23:01)
[2022-04-11] MEDS: THIAMINE HCL 100 MG TABLET (FP) PO SCH (23:00)
[2022-04-12] MEDS ORDERED: methaDONE HCL 10 MG TABLET (FOR DETOX USE ONLY) PO ONE (10:00)
[2022-04-12] MEDS: PRENATAL VITAMINS W/ FOLIC ACID TABLET (FP) PO SCH (10:22)
[2022-04-12] MEDS: NICOTINE 14 MG/24 HOURS TOPICAL PATCH TD SCH (10:24)
[2022-04-12] MEDS: NICOTINE POLACRILEX 2 MG GUM BUC PRN (15:34)
[2022-04-12] MEDS: THIAMINE HCL 100 MG TABLET (FP) PO SCH (22:21)
[2022-04-12] MEDS: MELATONIN 5 MG TABLETS PO SCH (22:21)
[2022-04-12] MEDS: METHOCARBAMOL 500 MG TABLET PO PRN (22:22)
[2022-04-13] MEDS: NICOTINE 14 MG/24 HOURS TOPICAL PATCH TD SCH (10:29)
[2022-04-13] MEDS: PRENATAL VITAMINS W/ FOLIC ACID TABLET (FP) PO SCH (10:29)
[2022-04-13 12:55] VITALS: BP 117/87; PULSE 101; RESP 19; TEMP 97.1
== END 2022-04-13 15:05 | disposition other institution (70) | DRG 773 ==
LOC: YASAS 18:17 → Y3N 04-08 01:58
PROVIDERS: ADMIT Allergy & Immunology; ATTEND Surgery
PROC: HZ2ZZZZ Detoxification Services for Substance Abuse Treatment (ICD-10-PCS; principal; 2022-04-08)
DX: F11.23 Opioid dependence with withdrawal (principal); F14.20 Cocaine dependence, uncomplicated; F12.20 Cannabis dependence, uncomplicated; F17.210 Nicotine dependence, cigarettes, uncomplicated; Z88.6 Allergy status to analgesic agent; Z91.51 Personal history of suicidal behavior; Z56.0 Unemployment, unspecified; Z59.00 Homelessness unspecified
CPT/HCPCS: 36415; 80053; 81003; 85027; 86780; 87811; C9803-CS; U0003; U0005

== ENCOUNTER 2022-04-13 13:59 | Inpatient (IN) | payer OTHER ==
[2022-04-13] MEDS ORDERED: MAG HYDROX/AL HYDROX/SIMETH 30 ML UNIT-DOSE CUP PO PRN (16:14)
[2022-04-13] MEDS ORDERED: guaiFENesin 200 MG/10 ML 10 ML UNIT-DOSE CUPS PO PRN (16:14)
[2022-04-13] MEDS ORDERED: LOPERAMIDE HCL 2 MG CAPSULE PO PRN (16:14)
[2022-04-13] MEDS ORDERED: P-EPHED 60MG/TRIPROLIDI 2.5MG TABLET PO PRN (16:14)
[2022-04-13] MEDS ORDERED: ACETAMINOPHEN 325 MG TABLET (FP) PO PRN (16:14)
[2022-04-13] MEDS ORDERED: NICOTINE 10 MG CARTRIDGE (INHALER) IH PRN (16:14)
[2022-04-13] MEDS ORDERED: BENZOCAINE/MENTHOL (CHLORASEPTIC ) LOZENGE MM PRN (16:14)
[2022-04-13] MEDS ORDERED: NICOTINE POLACRILEX 4 MG GUM BUC PRN (16:14)
[2022-04-13] MEDS ORDERED: POLYETHYLENE GLYCOL (HEALTHYLAX) 3350 17 GM PACKET PO PRN (16:14)
[2022-04-13] MEDS ORDERED: IBUPROFEN 400 MG TABLET (FP) PO PRN (16:14)
[2022-04-13] MEDS ORDERED: MAGNESIUM HYDROX 2400MG/30ML ORAL SUSPENSION 30 ML CUP PO PRN (16:14)
[2022-04-13] MEDS ORDERED: NALOXONE (NARCAN) HCL 4 MG/0.1 ML SPRAY NS SCH (16:30)
[2022-04-13] MEDS: MELATONIN 5 MG TABLETS PO SCH (21:30)
[2022-04-13] MEDS: THIAMINE HCL 100 MG TABLET (FP) PO SCH (21:30)
[2022-04-14] MEDS ORDERED: NALOXONE HCL (KLOXXADO) 8 MG SPRAY NS PRN (09:00)
[2022-04-14] MEDS: PRENATAL VITAMINS W/ FOLIC ACID TABLET (FP) PO SCH (09:04)
[2022-04-14] MEDS: hydrOXYzine PAMOATE 25 MG CAPSULE (FP) PO PRN ×2 (09:05→21:34)
[2022-04-14] MEDS: MELATONIN 5 MG TABLETS PO SCH (21:33)
[2022-04-14] MEDS: THIAMINE HCL 100 MG TABLET (FP) PO SCH (21:33)
[2022-04-14] MEDS ORDERED: INSULIN (NOVOLOG) ASPART 100 UNITS/ML 10ML VIAL ONE (21:37)
[2022-04-15] MEDS ORDERED: diazePAM 5 MG TABLET PO PRN (09:41)
[2022-04-15] MEDS ORDERED: BUPRENORPHINE HCL 150 MCG, BUPRENORPHINE HCL 75 MCG BC PRN (09:41)
[2022-04-15] MEDS ORDERED: cloNIDine HCL 0.1 MG TABLET PO ONE (09:41)
[2022-04-15] MEDS ORDERED: BUPRENORPHINE HCL 150 MCG, BUPRENORPHINE HCL 75 MCG BC ONE (09:41)
[2022-04-15] MEDS: PRENATAL VITAMINS W/ FOLIC ACID TABLET (FP) PO SCH (10:12)
[2022-04-15] MEDS ORDERED: cloNIDine HCL 0.1 MG TABLET PO PRN (13:41)
[2022-04-15] MEDS: THIAMINE HCL 100 MG TABLET (FP) PO SCH (21:24)
[2022-04-15] MEDS: MELATONIN 5 MG TABLETS PO SCH (21:24)
[2022-04-15] MEDS: hydrOXYzine PAMOATE 25 MG CAPSULE (FP) PO PRN (21:24)
[2022-04-16] MEDS ORDERED: BUPRENORPHINE HCL 150 MCG, BUPRENORPHINE HCL 75 MCG BC PRN
[2022-04-16] MEDS ORDERED: BUPRENORPHINE HCL 150 MCG, BUPRENORPHINE HCL 75 MCG BC SCH (06:00)
[2022-04-16 07:30] VITALS: BP 101/73; PULSE 87; RESP 16; TEMP 97.3
[2022-04-17] MEDS ORDERED: BUPRENORPHINE HCL 450 MCG FILM BC SCH (06:00)
[2022-04-18] MEDS ORDERED: BUPRENORPHINE/NALOXONE 4 MG/1 MG FILM PACKET SL SCH (06:00)
[2022-04-19] MEDS ORDERED: BUPRENORPHINE/NALOXONE 8 MG/2 MG FILM PACKET SL ONE (06:00)
== END 2022-04-16 10:00 | disposition left against medical advice (07) | DRG 770 ==
LOC: YASAS 13:59 → Y3E 14:00
PROVIDERS: ADMIT Allergy & Immunology; ATTEND Psychiatry & Neurology Pain Medicine
PROC: HZ42ZZZ Group Counseling for Substance Abuse Treatment, Cognitive-Behavioral (ICD-10-PCS; principal; 2022-04-13)
DX: F11.20 Opioid dependence, uncomplicated (principal); F14.20 Cocaine dependence, uncomplicated; F16.10 Hallucinogen abuse, uncomplicated; F17.210 Nicotine dependence, cigarettes, uncomplicated; Z88.6 Allergy status to analgesic agent; Z91.018 Allergy to other foods; Z59.00 Homelessness unspecified
CPT/HCPCS: 36415; 86803

== ENCOUNTER 2022-09-08 17:46 | Inpatient (IN) | payer OTHER ==
[2022-09-08 18:53] VITALS: BMI 28.7
[2022-09-08] MEDS ORDERED: BENZOCAINE/MENTHOL (CHLORASEPTIC ) LOZENGE MM PRN (22:24)
[2022-09-08] MEDS ORDERED: LOPERAMIDE HCL 2 MG CAPSULE PO PRN (22:24)
[2022-09-08] MEDS ORDERED: P-EPHED 60MG/TRIPROLIDI 2.5MG TABLET PO PRN (22:24)
[2022-09-08] MEDS ORDERED: DICYCLOMINE HCL 10 MG CAPSULE PO PRN (22:24)
[2022-09-08] MEDS ORDERED: ACETAMINOPHEN 325 MG TABLET (FP) PO PRN (22:24)
[2022-09-08] MEDS ORDERED: BENZONATATE 200 MG CAPSULE PO PRN (22:24)
[2022-09-08] MEDS ORDERED: NALOXONE HCL 0.4 MG/ML VIAL IM PRN (22:24)
[2022-09-08] MEDS ORDERED: MAGNESIUM HYDROX 2400MG/30ML ORAL SUSPENSION 30 ML CUP PO PRN (22:24)
[2022-09-08] MEDS ORDERED: NALOXONE HCL (KLOXXADO) 8 MG SPRAY NS PRN (22:24)
[2022-09-08] MEDS ORDERED: guaiFENesin 600 MG TABLET.ER (FP) PO PRN (22:24)
[2022-09-08] MEDS ORDERED: POLYETHYLENE GLYCOL (HEALTHYLAX) 3350 17 GM PACKET PO PRN (22:24)
[2022-09-08] MEDS ORDERED: MAG HYDROX/AL HYDROX/SIMETH 30 ML UNIT-DOSE CUP PO PRN (22:24)
[2022-09-08] MEDS ORDERED: ONDANSETRON *ODT* 4 MG TABLET SL PRN (22:24)
[2022-09-08] MEDS: hydrOXYzine PAMOATE 25 MG CAPSULE (FP) PO PRN (23:10)
[2022-09-09] MEDS ORDERED: methaDONE HCL 10 MG TABLET (FOR DETOX USE ONLY) PO ONE ×2 (09:36→11:15)
[2022-09-09] MEDS: PRENATAL VITAMINS W/ FOLIC ACID TABLET (FP) PO SCH (10:42)
[2022-09-09] MEDS: cloNIDine HCL 0.1 MG TABLET PO PRN (10:45)
[2022-09-09] MEDS: hydrOXYzine PAMOATE 25 MG CAPSULE (FP) PO PRN (10:45)
[2022-09-09 11:47] LABS: POTASSIUM 3.5 mmol/L (3.5-5.1)
[2022-09-09 11:51] LABS: BLOOD UREA NITROGEN 10.1 mg/dL (7-18); CALCIUM 8.4 mg/dL (8.5-10.1)
[2022-09-09 11:52] LABS: ALBUMIN 3.1 g/dl (3.4-5.0)
[2022-09-09 11:55] LABS: CREATININE 0.8 mg/dL (0.55-1.3)
[2022-09-09 11:56] LABS: BILIRUBIN,TOTAL 0.8 mg/dL (0.2-1); TOT PROT 5.6 g/dl (6.4-8.2)
[2022-09-09] MEDS: diazePAM 5 MG TABLET PO PRN ×2 (13:28→22:00)
[2022-09-09] MEDS: NICOTINE POLACRILEX 2 MG GUM BUC PRN (13:29)
[2022-09-09 18:18] LABS: HEMOGLOBIN 13.9 GM/dL (11.7-16.9); MCH 30.9 pg (25.7-33.7); MCHC 33.9 g/dl (32.0-35.9); MEAN CELL VOLUME 91.1 fl (80-96); MEAN PLT VOLUME 7.8 fl (7.5-11.1); PLATELET COUNT 215 10^3/uL (134-434); RBC 4.49 M/mm3 (4.00-5.60); WHITE BLOOD COUNT 7.5 K/mm3 (4.0-10.0)
[2022-09-09] MEDS: MELATONIN 5 MG TABLETS PO PRN (22:00)
[2022-09-09] MEDS: THIAMINE HCL 100 MG TABLET (FP) PO SCH (22:01)
[2022-09-10] MEDS: PRENATAL VITAMINS W/ FOLIC ACID TABLET (FP) PO SCH (10:09)
[2022-09-10] MEDS: cloNIDine HCL 0.1 MG TABLET PO PRN (13:19)
[2022-09-10] MEDS: diazePAM 5 MG TABLET PO PRN ×3 (13:20→22:05)
[2022-09-10] MEDS: NICOTINE POLACRILEX 2 MG GUM BUC PRN ×3 (17:43→22:07)
[2022-09-10] MEDS: THIAMINE HCL 100 MG TABLET (FP) PO SCH (22:03)
[2022-09-10] MEDS: MELATONIN 5 MG TABLETS PO PRN (22:03)
[2022-09-11] MEDS ORDERED: methaDONE HCL 10 MG TABLET (FOR DETOX USE ONLY) PO ONE (10:00)
[2022-09-11] MEDS: PRENATAL VITAMINS W/ FOLIC ACID TABLET (FP) PO SCH (10:14)
[2022-09-11] MEDS: diazePAM 5 MG TABLET PO PRN ×3 (10:19→22:38)
[2022-09-11] MEDS: NICOTINE POLACRILEX 2 MG GUM BUC PRN ×3 (12:39→22:41)
[2022-09-11] MEDS: cloNIDine HCL 0.1 MG TABLET PO PRN (12:40)
[2022-09-11] MEDS: hydrOXYzine PAMOATE 25 MG CAPSULE (FP) PO PRN (12:40)
[2022-09-11] MEDS: THIAMINE HCL 100 MG TABLET (FP) PO SCH (22:36)
[2022-09-11] MEDS: MELATONIN 5 MG TABLETS PO PRN (22:36)
[2022-09-12] MEDS: PRENATAL VITAMINS W/ FOLIC ACID TABLET (FP) PO SCH (10:44)
[2022-09-12] MEDS: hydrOXYzine PAMOATE 25 MG CAPSULE (FP) PO PRN (10:47)
[2022-09-12] MEDS ORDERED: hydrOXYzine PAMOATE 25 MG CAPSULE (FP) PO ONE (14:50)
[2022-09-12] MEDS: MELATONIN 5 MG TABLETS PO PRN (22:26)
[2022-09-12] MEDS: THIAMINE HCL 100 MG TABLET (FP) PO SCH (22:26)
[2022-09-12] MEDS: NICOTINE POLACRILEX 2 MG GUM BUC PRN (22:26)
[2022-09-13] MEDS: CALCIUM CARBONATE 650 MG TABLET PO SCH ×3 (00:03→22:11)
[2022-09-13] MEDS ORDERED: methaDONE HCL 10 MG TABLET (FOR DETOX USE ONLY) PO ONE (10:00)
[2022-09-13] MEDS: PRENATAL VITAMINS W/ FOLIC ACID TABLET (FP) PO SCH (10:23)
[2022-09-13] MEDS: hydrOXYzine PAMOATE 25 MG CAPSULE (FP) PO PRN (10:26)
[2022-09-13] MEDS: NICOTINE POLACRILEX 2 MG GUM BUC PRN ×3 (10:27→22:12)
[2022-09-13 17:08] VITALS: RESP 18
[2022-09-13] MEDS ORDERED: cloNIDine HCL 0.1 MG TABLET PO ONE (17:29)
[2022-09-13] MEDS: MELATONIN 5 MG TABLETS PO PRN (22:10)
[2022-09-13] MEDS: THIAMINE HCL 100 MG TABLET (FP) PO SCH (22:10)
[2022-09-14 06:10] VITALS: TEMP 96.9
[2022-09-14 09:17] VITALS: BP 135/88; PULSE 76
[2022-09-14] MEDS: PRENATAL VITAMINS W/ FOLIC ACID TABLET (FP) PO SCH (09:20)
[2022-09-14] MEDS: CALCIUM CARBONATE 650 MG TABLET PO SCH (09:20)
== END 2022-09-14 12:25 | disposition other institution (70) | DRG 773 ==
LOC: YASAS 17:46 → Y6N 21:55
PROVIDERS: ADMIT Allergy & Immunology; ATTEND Surgery
PROC: HZ2ZZZZ Detoxification Services for Substance Abuse Treatment (ICD-10-PCS; principal; 2022-09-08)
DX: F11.23 Opioid dependence with withdrawal (principal); F14.20 Cocaine dependence, uncomplicated; F17.210 Nicotine dependence, cigarettes, uncomplicated; F19.282 Other psychoactive substance dependence with psychoactive substance-induced sleep disorder; F19.24 Other psychoactive substance dependence with psychoactive substance-induced mood disorder; E83.51 Hypocalcemia; Z88.6 Allergy status to analgesic agent
CPT/HCPCS: 36415; 80053; 85027; 86780; 87811; C9803-CS; U0003; U0005

== ENCOUNTER 2022-09-14 12:43 | Inpatient (IN) | payer OTHER ==
[2022-09-14] MEDS ORDERED: AMMONIUM LACTATE 12% LOTION 225 GM BOTTLE TP PRN (13:59)
[2022-09-14] MEDS ORDERED: IBUPROFEN 400 MG TABLET (FP) PO PRN (13:59)
[2022-09-14] MEDS ORDERED: NICOTINE 14 MG/24 HOURS TOPICAL PATCH TD PRN (13:59)
[2022-09-14] MEDS ORDERED: NALOXONE HCL 0.4 MG/ML VIAL IVPUSH PRN (13:59)
[2022-09-14] MEDS ORDERED: NALOXONE HCL (KLOXXADO) 8 MG SPRAY NS PRN (13:59)
[2022-09-14] MEDS ORDERED: BENZOCAINE/MENTHOL (CHLORASEPTIC ) LOZENGE MM PRN (13:59)
[2022-09-14] MEDS ORDERED: guaiFENesin 600 MG TABLET.ER (FP) PO PRN (13:59)
[2022-09-14] MEDS ORDERED: IBUPROFEN 600 MG TABLET (FP) PO PRN (13:59)
[2022-09-14] MEDS ORDERED: POLYETHYLENE GLYCOL (HEALTHYLAX) 3350 17 GM PACKET PO PRN (13:59)
[2022-09-14] MEDS ORDERED: ACETAMINOPHEN 325 MG TABLET (FP) PO PRN (13:59)
[2022-09-14] MEDS ORDERED: MAG HYDROX/AL HYDROX/SIMETH 30 ML UNIT-DOSE CUP PO PRN (13:59)
[2022-09-14] MEDS ORDERED: LOPERAMIDE HCL 2 MG CAPSULE PO PRN (13:59)
[2022-09-14] MEDS ORDERED: COLLOIDAL OATMEAL 1 BAR EACH TP PRN (13:59)
[2022-09-14] MEDS ORDERED: BENZONATATE 200 MG CAPSULE PO PRN (13:59)
[2022-09-14] MEDS: THIAMINE HCL 100 MG TABLET (FP) PO SCH (21:07)
[2022-09-14] MEDS: hydrOXYzine PAMOATE 25 MG CAPSULE (FP) PO PRN (21:08)
[2022-09-14] MEDS ORDERED: MELATONIN 5 MG TABLETS PO SCH (22:00)
[2022-09-15] MEDS: METHOCARBAMOL 500 MG TABLET PO PRN ×2 (09:42→21:18)
[2022-09-15] MEDS: hydrOXYzine PAMOATE 25 MG CAPSULE (FP) PO PRN ×2 (09:42→21:17)
[2022-09-15] MEDS: PRENATAL VITAMINS W/ FOLIC ACID TABLET (FP) PO SCH (09:42)
[2022-09-15] MEDS ORDERED: cloNIDine HCL 0.1 MG TABLET PO PRN (10:47)
[2022-09-15] MEDS ORDERED: ONDANSETRON *ODT* 4 MG TABLET SL PRN (10:48)
[2022-09-15] MEDS: cloNIDine HCL 0.1 MG TABLET PO PRN (12:18)
[2022-09-15 17:02] LABS: HIV INTERPRETATION NEGATIVE (NEGATIVE)
[2022-09-15] MEDS: NICOTINE POLACRILEX 4 MG GUM BUC PRN (18:18)
[2022-09-15] MEDS: MELATONIN 5 MG TABLETS PO SCH (21:16)
[2022-09-15] MEDS: THIAMINE HCL 100 MG TABLET (FP) PO SCH (21:17)
[2022-09-16] MEDS: PRENATAL VITAMINS W/ FOLIC ACID TABLET (FP) PO SCH (10:01)
[2022-09-16] MEDS: cloNIDine HCL 0.1 MG TABLET PO PRN (19:22)
[2022-09-16] MEDS: hydrOXYzine PAMOATE 25 MG CAPSULE (FP) PO PRN (19:22)
[2022-09-16] MEDS: MELATONIN 5 MG TABLETS PO SCH (21:01)
[2022-09-16] MEDS: THIAMINE HCL 100 MG TABLET (FP) PO SCH (21:02)
[2022-09-17] MEDS: PRENATAL VITAMINS W/ FOLIC ACID TABLET (FP) PO SCH (10:47)
[2022-09-17] MEDS: MELATONIN 5 MG TABLETS PO SCH (21:17)
[2022-09-17] MEDS: hydrOXYzine PAMOATE 25 MG CAPSULE (FP) PO PRN (21:18)
[2022-09-17] MEDS: THIAMINE HCL 100 MG TABLET (FP) PO SCH (21:20)
[2022-09-18] MEDS: METHOCARBAMOL 500 MG TABLET PO PRN (09:42)
[2022-09-18] MEDS: hydrOXYzine PAMOATE 25 MG CAPSULE (FP) PO PRN ×2 (09:43→19:12)
[2022-09-18] MEDS: PRENATAL VITAMINS W/ FOLIC ACID TABLET (FP) PO SCH (09:43)
[2022-09-18] MEDS: BUPRENORPHINE/NALOXONE 2 MG/0.5 MG FILM PACKET SL SCH ×3 (12:37→21:14)
[2022-09-18] MEDS: NICOTINE 10 MG CARTRIDGE (INHALER) IH PRN ×2 (12:57→19:14)
[2022-09-18] MEDS: NICOTINE POLACRILEX 4 MG GUM BUC PRN ×2 (14:57→19:15)
[2022-09-18] MEDS: cloNIDine HCL 0.1 MG TABLET PO PRN (19:12)
[2022-09-18] MEDS: MELATONIN 5 MG TABLETS PO SCH (21:14)
[2022-09-18] MEDS: THIAMINE HCL 100 MG TABLET (FP) PO SCH (21:14)
[2022-09-19] MEDS: BUPRENORPHINE/NALOXONE 2 MG/0.5 MG FILM PACKET SL SCH ×3 (07:00→21:13)
[2022-09-19] MEDS: NICOTINE 10 MG CARTRIDGE (INHALER) IH PRN (07:02)
[2022-09-19] MEDS: NICOTINE POLACRILEX 4 MG GUM BUC PRN ×2 (08:50→14:02)
[2022-09-19] MEDS: PRENATAL VITAMINS W/ FOLIC ACID TABLET (FP) PO SCH (09:38)
[2022-09-19] MEDS: cloNIDine HCL 0.1 MG TABLET PO PRN ×2 (09:39→21:13)
[2022-09-19] MEDS: hydrOXYzine PAMOATE 25 MG CAPSULE (FP) PO PRN (09:39)
[2022-09-19] MEDS: THIAMINE HCL 100 MG TABLET (FP) PO SCH (21:13)
[2022-09-19] MEDS: MELATONIN 5 MG TABLETS PO SCH (21:13)
[2022-09-20] MEDS: BUPRENORPHINE/NALOXONE 2 MG/0.5 MG FILM PACKET SL SCH ×3 (06:47→21:21)
[2022-09-20] MEDS: PRENATAL VITAMINS W/ FOLIC ACID TABLET (FP) PO SCH (09:44)
[2022-09-20] MEDS: hydrOXYzine PAMOATE 25 MG CAPSULE (FP) PO PRN ×2 (09:45→21:21)
[2022-09-20] MEDS: NICOTINE POLACRILEX 4 MG GUM BUC PRN (13:34)
[2022-09-20] MEDS: MELATONIN 5 MG TABLETS PO SCH (21:21)
[2022-09-20] MEDS: THIAMINE HCL 100 MG TABLET (FP) PO SCH (21:21)
[2022-09-20] MEDS: cloNIDine HCL 0.1 MG TABLET PO PRN (21:21)
[2022-09-21] MEDS: BUPRENORPHINE/NALOXONE 2 MG/0.5 MG FILM PACKET SL SCH ×3 (07:36→21:14)
[2022-09-21] MEDS: hydrOXYzine PAMOATE 25 MG CAPSULE (FP) PO PRN (09:36)
[2022-09-21] MEDS: PRENATAL VITAMINS W/ FOLIC ACID TABLET (FP) PO SCH (09:36)
[2022-09-21] MEDS: NICOTINE POLACRILEX 4 MG GUM BUC PRN ×3 (11:04→17:21)
[2022-09-21] MEDS: NICOTINE 10 MG CARTRIDGE (INHALER) IH PRN (13:32)
[2022-09-21] MEDS: cloNIDine HCL 0.1 MG TABLET PO PRN (17:20)
[2022-09-21] MEDS: THIAMINE HCL 100 MG TABLET (FP) PO SCH (21:14)
[2022-09-21] MEDS: MELATONIN 5 MG TABLETS PO SCH (21:14)
[2022-09-22] MEDS: BUPRENORPHINE/NALOXONE 2 MG/0.5 MG FILM PACKET SL SCH ×3 (07:35→21:09)
[2022-09-22] MEDS: PRENATAL VITAMINS W/ FOLIC ACID TABLET (FP) PO SCH (09:51)
[2022-09-22] MEDS: hydrOXYzine PAMOATE 25 MG CAPSULE (FP) PO PRN ×2 (09:52→21:09)
[2022-09-22] MEDS: NICOTINE 10 MG CARTRIDGE (INHALER) IH PRN (09:53)
[2022-09-22] MEDS: NICOTINE POLACRILEX 4 MG GUM BUC PRN ×3 (09:53→21:10)
[2022-09-22] MEDS: MAGNESIUM HYDROX 2400MG/30ML ORAL SUSPENSION 30 ML CUP PO PRN (10:47)
[2022-09-22] MEDS: cloNIDine HCL 0.1 MG TABLET PO PRN (17:41)
[2022-09-22] MEDS: THIAMINE HCL 100 MG TABLET (FP) PO SCH (21:09)
[2022-09-22] MEDS: MELATONIN 5 MG TABLETS PO SCH (21:09)
[2022-09-22 22:03] VITALS: RESP 18
[2022-09-23] MEDS: BUPRENORPHINE/NALOXONE 2 MG/0.5 MG FILM PACKET SL SCH (06:29)
[2022-09-23] MEDS: NICOTINE POLACRILEX 4 MG GUM BUC PRN ×4 (07:50→22:30)
[2022-09-23] MEDS: PRENATAL VITAMINS W/ FOLIC ACID TABLET (FP) PO SCH (09:42)
[2022-09-23] MEDS: cloNIDine HCL 0.1 MG TABLET PO PRN ×2 (09:44→21:14)
[2022-09-23] MEDS ORDERED: BUPRENORPHINE/NALOXONE 8 MG/2 MG FILM PACKET SL SCH (10:00)
[2022-09-23] MEDS ORDERED: [UNRECOGNIZED DRUG - OTHER] SL ONE (10:20)
[2022-09-23] MEDS ORDERED: BUPRENORPHINE HCL SL ONE (10:20)
[2022-09-23] MEDS ORDERED: NALOXONE SL ONE (10:20)
[2022-09-23] MEDS: NICOTINE 10 MG CARTRIDGE (INHALER) IH PRN ×2 (11:34→17:20)
[2022-09-23] MEDS: BUPRENORPHINE/NALOXONE 8 MG/2 MG FILM PACKET SL SCH (21:13)
[2022-09-23] MEDS: MELATONIN 5 MG TABLETS PO SCH (21:13)
[2022-09-23] MEDS: THIAMINE HCL 100 MG TABLET (FP) PO SCH (21:14)
[2022-09-23] MEDS: hydrOXYzine PAMOATE 25 MG CAPSULE (FP) PO PRN (21:14)
[2022-09-24] MEDS: PRENATAL VITAMINS W/ FOLIC ACID TABLET (FP) PO SCH (09:48)
[2022-09-24] MEDS: BUPRENORPHINE/NALOXONE 8 MG/2 MG FILM PACKET SL SCH ×2 (09:49→21:17)
[2022-09-24] MEDS: NICOTINE POLACRILEX 4 MG GUM BUC PRN ×3 (10:34→21:55)
[2022-09-24] MEDS: cloNIDine HCL 0.1 MG TABLET PO PRN (12:28)
[2022-09-24] MEDS: NICOTINE 10 MG CARTRIDGE (INHALER) IH PRN (12:28)
[2022-09-24] MEDS: MAGNESIUM HYDROX 2400MG/30ML ORAL SUSPENSION 30 ML CUP PO PRN (14:56)
[2022-09-24] MEDS ORDERED: SODIUM PHOSPHATE/NA BIPHOS 133 ML ENEMA RC ONE (15:37)
[2022-09-24] MEDS: MELATONIN 5 MG TABLETS PO SCH (21:17)
[2022-09-24] MEDS: THIAMINE HCL 100 MG TABLET (FP) PO SCH (21:17)
[2022-09-24] MEDS: hydrOXYzine PAMOATE 25 MG CAPSULE (FP) PO PRN (21:19)
[2022-09-25] MEDS: BUPRENORPHINE/NALOXONE 8 MG/2 MG FILM PACKET SL SCH ×2 (09:48→21:16)
[2022-09-25] MEDS: PRENATAL VITAMINS W/ FOLIC ACID TABLET (FP) PO SCH (09:48)
[2022-09-25] MEDS: cloNIDine HCL 0.1 MG TABLET PO PRN ×2 (11:06→17:41)
[2022-09-25] MEDS: MAGNESIUM HYDROX 2400MG/30ML ORAL SUSPENSION 30 ML CUP PO PRN (12:54)
[2022-09-25] MEDS: NICOTINE POLACRILEX 4 MG GUM BUC PRN ×3 (12:55→21:51)
[2022-09-25] MEDS: NICOTINE 10 MG CARTRIDGE (INHALER) IH PRN (17:38)
[2022-09-25] MEDS: THIAMINE HCL 100 MG TABLET (FP) PO SCH (21:16)
[2022-09-25] MEDS: MELATONIN 5 MG TABLETS PO SCH (21:16)
[2022-09-25] MEDS: hydrOXYzine PAMOATE 25 MG CAPSULE (FP) PO PRN (21:17)
[2022-09-26] MEDS: PRENATAL VITAMINS W/ FOLIC ACID TABLET (FP) PO SCH (09:59)
[2022-09-26] MEDS: BUPRENORPHINE/NALOXONE 8 MG/2 MG FILM PACKET SL SCH ×2 (10:02→21:01)
[2022-09-26] MEDS: NICOTINE 10 MG CARTRIDGE (INHALER) IH PRN (12:28)
[2022-09-26] MEDS: NICOTINE POLACRILEX 4 MG GUM BUC PRN ×3 (12:28→23:10)
[2022-09-26] MEDS: hydrOXYzine PAMOATE 25 MG CAPSULE (FP) PO PRN ×2 (12:31→21:01)
[2022-09-26] MEDS: cloNIDine HCL 0.1 MG TABLET PO PRN (17:38)
[2022-09-26] MEDS: MAGNESIUM HYDROX 2400MG/30ML ORAL SUSPENSION 30 ML CUP PO PRN (17:38)
[2022-09-26] MEDS: THIAMINE HCL 100 MG TABLET (FP) PO SCH (21:00)
[2022-09-26] MEDS: MELATONIN 5 MG TABLETS PO SCH (21:01)
[2022-09-27] MEDS: BUPRENORPHINE/NALOXONE 8 MG/2 MG FILM PACKET SL SCH ×2 (09:33→21:13)
[2022-09-27] MEDS: PRENATAL VITAMINS W/ FOLIC ACID TABLET (FP) PO SCH (09:33)
[2022-09-27] MEDS: NICOTINE POLACRILEX 4 MG GUM BUC PRN ×4 (11:12→22:52)
[2022-09-27] MEDS: MAGNESIUM HYDROX 2400MG/30ML ORAL SUSPENSION 30 ML CUP PO PRN (11:12)
[2022-09-27] MEDS: cloNIDine HCL 0.1 MG TABLET PO PRN ×2 (14:00→21:13)
[2022-09-27] MEDS: hydrOXYzine PAMOATE 25 MG CAPSULE (FP) PO PRN ×2 (14:00→23:51)
[2022-09-27] MEDS: MELATONIN 5 MG TABLETS PO SCH (21:11)
[2022-09-27] MEDS: THIAMINE HCL 100 MG TABLET (FP) PO SCH (21:11)
[2022-09-28] MEDS: BUPRENORPHINE/NALOXONE 8 MG/2 MG FILM PACKET SL SCH ×2 (09:32→21:05)
[2022-09-28] MEDS: PRENATAL VITAMINS W/ FOLIC ACID TABLET (FP) PO SCH (09:32)
[2022-09-28] MEDS: NICOTINE 10 MG CARTRIDGE (INHALER) IH PRN (10:37)
[2022-09-28] MEDS: NICOTINE POLACRILEX 4 MG GUM BUC PRN ×4 (10:37→21:08)
[2022-09-28] MEDS: hydrOXYzine PAMOATE 25 MG CAPSULE (FP) PO PRN ×2 (13:20→21:05)
[2022-09-28] MEDS: cloNIDine HCL 0.1 MG TABLET PO PRN (21:06)
[2022-09-28] MEDS: THIAMINE HCL 100 MG TABLET (FP) PO SCH (21:06)
[2022-09-28] MEDS: MELATONIN 5 MG TABLETS PO SCH (21:06)
[2022-09-29] MEDS: BUPRENORPHINE/NALOXONE 8 MG/2 MG FILM PACKET SL SCH ×2 (09:38→21:18)
[2022-09-29] MEDS: PRENATAL VITAMINS W/ FOLIC ACID TABLET (FP) PO SCH (09:38)
[2022-09-29] MEDS: MAGNESIUM HYDROX 2400MG/30ML ORAL SUSPENSION 30 ML CUP PO PRN (09:39)
[2022-09-29] MEDS: NICOTINE POLACRILEX 4 MG GUM BUC PRN ×4 (10:11→21:50)
[2022-09-29] MEDS: cloNIDine HCL 0.1 MG TABLET PO PRN (18:37)
[2022-09-29] MEDS: MELATONIN 5 MG TABLETS PO SCH (21:17)
[2022-09-29] MEDS: THIAMINE HCL 100 MG TABLET (FP) PO SCH (21:18)
[2022-09-29] MEDS: hydrOXYzine PAMOATE 25 MG CAPSULE (FP) PO PRN (21:18)
[2022-09-30] MEDS: NICOTINE 10 MG CARTRIDGE (INHALER) IH PRN (08:57)
[2022-09-30] MEDS: NICOTINE POLACRILEX 4 MG GUM BUC PRN ×4 (08:57→21:34)
[2022-09-30] MEDS: hydrOXYzine PAMOATE 25 MG CAPSULE (FP) PO PRN (09:40)
[2022-09-30] MEDS: BUPRENORPHINE/NALOXONE 8 MG/2 MG FILM PACKET SL SCH ×2 (09:40→21:13)
[2022-09-30] MEDS: PRENATAL VITAMINS W/ FOLIC ACID TABLET (FP) PO SCH (09:40)
[2022-09-30] MEDS: cloNIDine HCL 0.1 MG TABLET PO PRN (16:40)
[2022-09-30] MEDS: MELATONIN 5 MG TABLETS PO SCH (21:10)
[2022-09-30] MEDS: THIAMINE HCL 100 MG TABLET (FP) PO SCH (21:10)
[2022-10-01] MEDS: PRENATAL VITAMINS W/ FOLIC ACID TABLET (FP) PO SCH (09:27)
[2022-10-01] MEDS: BUPRENORPHINE/NALOXONE 8 MG/2 MG FILM PACKET SL SCH ×2 (09:27→21:12)
[2022-10-01] MEDS: NICOTINE 10 MG CARTRIDGE (INHALER) IH PRN (09:28)
[2022-10-01] MEDS: NICOTINE POLACRILEX 4 MG GUM BUC PRN ×4 (09:28→21:13)
[2022-10-01] MEDS: MAGNESIUM HYDROX 2400MG/30ML ORAL SUSPENSION 30 ML CUP PO PRN (17:21)
[2022-10-01] MEDS: hydrOXYzine PAMOATE 25 MG CAPSULE (FP) PO PRN (17:22)
[2022-10-01] MEDS: MELATONIN 5 MG TABLETS PO SCH (21:12)
[2022-10-01] MEDS: THIAMINE HCL 100 MG TABLET (FP) PO SCH (21:12)
[2022-10-02] MEDS: BUPRENORPHINE/NALOXONE 8 MG/2 MG FILM PACKET SL SCH ×2 (09:43→21:34)
[2022-10-02] MEDS: PRENATAL VITAMINS W/ FOLIC ACID TABLET (FP) PO SCH (09:43)
[2022-10-02] MEDS: DOCUSATE SODIUM 100 MG CAPSULE (FP) PO PRN (09:43)
[2022-10-02] MEDS: hydrOXYzine PAMOATE 25 MG CAPSULE (FP) PO PRN ×2 (09:43→21:34)
[2022-10-02] MEDS: NICOTINE POLACRILEX 4 MG GUM BUC PRN ×4 (09:44→20:33)
[2022-10-02] MEDS: NICOTINE 10 MG CARTRIDGE (INHALER) IH PRN (09:44)
[2022-10-02] MEDS: THIAMINE HCL 100 MG TABLET (FP) PO SCH (21:34)
[2022-10-02] MEDS: cloNIDine HCL 0.1 MG TABLET PO PRN (21:34)
[2022-10-02] MEDS: MELATONIN 5 MG TABLETS PO SCH (21:34)
[2022-10-03] MEDS: PRENATAL VITAMINS W/ FOLIC ACID TABLET (FP) PO SCH (09:32)
[2022-10-03] MEDS: BUPRENORPHINE/NALOXONE 8 MG/2 MG FILM PACKET SL SCH ×2 (09:32→21:04)
[2022-10-03] MEDS: DOCUSATE SODIUM 100 MG CAPSULE (FP) PO PRN (09:32)
[2022-10-03] MEDS: NICOTINE POLACRILEX 4 MG GUM BUC PRN ×4 (10:49→22:02)
[2022-10-03] MEDS: NICOTINE 10 MG CARTRIDGE (INHALER) IH PRN (10:49)
[2022-10-03] MEDS: THIAMINE HCL 100 MG TABLET (FP) PO SCH (21:04)
[2022-10-03] MEDS: MELATONIN 5 MG TABLETS PO SCH (21:04)
[2022-10-04] MEDS: NICOTINE POLACRILEX 4 MG GUM BUC PRN ×4 (09:02→22:30)
[2022-10-04] MEDS: hydrOXYzine PAMOATE 25 MG CAPSULE (FP) PO PRN (09:41)
[2022-10-04] MEDS: BUPRENORPHINE/NALOXONE 8 MG/2 MG FILM PACKET SL SCH ×2 (09:41→21:13)
[2022-10-04] MEDS: PRENATAL VITAMINS W/ FOLIC ACID TABLET (FP) PO SCH (09:41)
[2022-10-04] MEDS: NICOTINE 10 MG CARTRIDGE (INHALER) IH PRN (09:42)
[2022-10-04] MEDS: DOCUSATE SODIUM 100 MG CAPSULE (FP) PO PRN (09:43)
[2022-10-04] MEDS: THIAMINE HCL 100 MG TABLET (FP) PO SCH (21:12)
[2022-10-04] MEDS: MELATONIN 5 MG TABLETS PO SCH (21:12)
[2022-10-05 07:16] VITALS: TEMP 97
[2022-10-05] MEDS: PRENATAL VITAMINS W/ FOLIC ACID TABLET (FP) PO SCH (09:47)
[2022-10-05] MEDS: BUPRENORPHINE/NALOXONE 8 MG/2 MG FILM PACKET SL SCH ×2 (09:48→21:23)
[2022-10-05] MEDS: hydrOXYzine PAMOATE 25 MG CAPSULE (FP) PO PRN ×2 (09:48→21:24)
[2022-10-05] MEDS: NICOTINE POLACRILEX 4 MG GUM BUC PRN ×3 (12:15→21:27)
[2022-10-05] MEDS: cloNIDine HCL 0.1 MG TABLET PO PRN (17:32)
[2022-10-05] MEDS: NICOTINE 10 MG CARTRIDGE (INHALER) IH PRN (17:32)
[2022-10-05 17:41] VITALS: BP 136/90; PULSE 92
[2022-10-05] MEDS: THIAMINE HCL 100 MG TABLET (FP) PO SCH (21:23)
[2022-10-05] MEDS: MELATONIN 5 MG TABLETS PO SCH (21:23)
[2022-10-06] MEDS: PRENATAL VITAMINS W/ FOLIC ACID TABLET (FP) PO SCH (09:31)
[2022-10-06] MEDS: NICOTINE 10 MG CARTRIDGE (INHALER) IH PRN (09:32)
[2022-10-06] MEDS: NICOTINE POLACRILEX 4 MG GUM BUC PRN ×2 (09:33→13:26)
[2022-10-06] MEDS: BUPRENORPHINE/NALOXONE 8 MG/2 MG FILM PACKET SL SCH (09:56)
[2022-10-06] MEDS: DOCUSATE SODIUM 100 MG CAPSULE (FP) PO PRN (14:48)
== END 2022-10-06 14:50 | disposition home or self-care (01) | DRG 772 ==
LOC: YASAS 12:43 → Y5N 12:44
PROVIDERS: ADMIT Allergy & Immunology; ATTEND Psychiatry & Neurology Pain Medicine
PROC: HZ42ZZZ Group Counseling for Substance Abuse Treatment, Cognitive-Behavioral (ICD-10-PCS; principal; 2022-09-14)
DX: F11.20 Opioid dependence, uncomplicated (principal); F14.20 Cocaine dependence, uncomplicated; F17.210 Nicotine dependence, cigarettes, uncomplicated; K59.00 Constipation, unspecified
CPT/HCPCS: 36415; 86803; 87389; Q0162

== ENCOUNTER 2022-12-02 12:42 | Inpatient (IN) | payer OTHER ==
[2022-12-02 13:54] VITALS: BMI 27.2
[2022-12-02] MEDS ORDERED: BISMUTH SUBSALICYLATE 524 MG/30 ML PO PRN (15:07)
[2022-12-02] MEDS ORDERED: IBUPROFEN 400 MG TABLET (FP) PO PRN (15:07)
[2022-12-02] MEDS ORDERED: LOPERAMIDE HCL 2 MG CAPSULE PO PRN (15:07)
[2022-12-02] MEDS ORDERED: guaiFENesin 600 MG TABLET.ER (FP) PO PRN (15:07)
[2022-12-02] MEDS ORDERED: POLYETHYLENE GLYCOL (HEALTHYLAX) 3350 17 GM PACKET PO PRN (15:07)
[2022-12-02] MEDS ORDERED: DICYCLOMINE HCL 10 MG CAPSULE PO PRN (15:07)
[2022-12-02] MEDS ORDERED: ACETAMINOPHEN 325 MG TABLET (FP) PO PRN (15:07)
[2022-12-02] MEDS ORDERED: BUPRENORPHINE HCL 150 MCG, BUPRENORPHINE HCL 75 MCG BC ONE (15:07)
[2022-12-02] MEDS ORDERED: BENZOCAINE/MENTHOL (CHLORASEPTIC ) LOZENGE MM PRN (15:07)
[2022-12-02] MEDS ORDERED: NALOXONE HCL 0.4 MG/ML VIAL IM PRN (15:07)
[2022-12-02] MEDS ORDERED: MAG HYDROX/AL HYDROX/SIMETH 30 ML UNIT-DOSE CUP PO PRN (15:07)
[2022-12-02] MEDS ORDERED: NALOXONE HCL (KLOXXADO) 8 MG SPRAY NS PRN (15:07)
[2022-12-02] MEDS ORDERED: IBUPROFEN 600 MG TABLET (FP) PO PRN (15:07)
[2022-12-02] MEDS ORDERED: BENZONATATE 200 MG CAPSULE PO PRN (15:07)
[2022-12-02] MEDS ORDERED: BUPRENORPHINE HCL 150 MCG, BUPRENORPHINE HCL 75 MCG BC PRN (15:07)
[2022-12-02] MEDS ORDERED: ONDANSETRON *ODT* 4 MG TABLET SL PRN (15:07)
[2022-12-02] MEDS ORDERED: cloNIDine HCL 0.1 MG TABLET PO ONE (15:07)
[2022-12-02] MEDS ORDERED: MAGNESIUM HYDROX 2400MG/30ML ORAL SUSPENSION 30 ML CUP PO PRN (15:07)
[2022-12-02] MEDS: diazePAM 5 MG TABLET PO PRN (18:23)
[2022-12-02] MEDS: PRENATAL VITAMINS W/ FOLIC ACID TABLET (FP) PO SCH (18:26)
[2022-12-02] MEDS: NICOTINE 14 MG/24 HOURS TOPICAL PATCH TD SCH (18:26)
[2022-12-02] MEDS: NICOTINE POLACRILEX 4 MG GUM BUC PRN (19:20)
[2022-12-02] MEDS: cloNIDine HCL 0.1 MG TABLET PO PRN (22:14)
[2022-12-02] MEDS: THIAMINE HCL 100 MG TABLET (FP) PO SCH (22:14)
[2022-12-02] MEDS: MELATONIN 5 MG TABLETS PO SCH (22:15)
[2022-12-03] MEDS ORDERED: BUPRENORPHINE HCL 150 MCG, BUPRENORPHINE HCL 75 MCG BC PRN
[2022-12-03] MEDS: BUPRENORPHINE HCL 150 MCG, BUPRENORPHINE HCL 75 MCG BC SCH ×2 (06:31→17:26)
[2022-12-03] MEDS: diazePAM 5 MG TABLET PO PRN ×4 (06:32→22:32)
[2022-12-03] MEDS: NICOTINE 14 MG/24 HOURS TOPICAL PATCH TD SCH (10:35)
[2022-12-03] MEDS: PRENATAL VITAMINS W/ FOLIC ACID TABLET (FP) PO SCH (10:35)
[2022-12-03 10:39] LABS: HEMATOCRIT 43.4 % (35.4-49); HEMOGLOBIN 14.4 GM/dL (11.7-16.9); MCH 31.6 pg (25.7-33.7); MCHC 33.3 g/dl (32.0-35.9); MEAN CELL VOLUME 95.1 fl (80-96); MEAN PLT VOLUME 8.6 fl (7.5-11.1); PLATELET COUNT 221 10^3/uL (134-434); RBC 4.56 M/mm3 (4.00-5.60); RDW 14.5 % (11.9-15.9); WHITE BLOOD COUNT 7.2 K/mm3 (4.0-10.0)
[2022-12-03 10:47] LABS: POTASSIUM 4.3 mmol/L (3.5-5.1)
[2022-12-03 10:52] LABS: BLOOD UREA NITROGEN 8.4 mg/dL (7-18); CALCIUM 8.6 mg/dL (8.5-10.1)
[2022-12-03 10:55] LABS: CREATININE 0.8 mg/dL (0.55-1.3)
[2022-12-03 10:58] LABS: BILIRUBIN,TOTAL 0.4 mg/dL (0.2-1); TOT PROT 5.4 g/dl (6.4-8.2)
[2022-12-03] MEDS: NICOTINE POLACRILEX 4 MG GUM BUC PRN (15:15)
[2022-12-03] MEDS: hydrOXYzine PAMOATE 25 MG CAPSULE (FP) PO PRN (20:21)
[2022-12-03] MEDS: METHOCARBAMOL 500 MG TABLET PO PRN (20:21)
[2022-12-03] MEDS: cloNIDine HCL 0.1 MG TABLET PO PRN (21:42)
[2022-12-03] MEDS: THIAMINE HCL 100 MG TABLET (FP) PO SCH (21:42)
[2022-12-03] MEDS: MELATONIN 5 MG TABLETS PO SCH (22:33)
[2022-12-04] MEDS: diazePAM 5 MG TABLET PO PRN ×2 (05:38→12:21)
[2022-12-04] MEDS: BUPRENORPHINE HCL 450 MCG FILM BC SCH ×2 (05:38→17:17)
[2022-12-04] MEDS: PRENATAL VITAMINS W/ FOLIC ACID TABLET (FP) PO SCH (09:25)
[2022-12-04] MEDS: NICOTINE 14 MG/24 HOURS TOPICAL PATCH TD SCH (12:20)
[2022-12-04] MEDS: cloNIDine HCL 0.1 MG TABLET PO PRN ×2 (12:22→20:56)
[2022-12-04] MEDS: METHOCARBAMOL 500 MG TABLET PO PRN ×2 (12:22→20:56)
[2022-12-04] MEDS: hydrOXYzine PAMOATE 25 MG CAPSULE (FP) PO PRN (17:31)
[2022-12-04] MEDS: NICOTINE POLACRILEX 4 MG GUM BUC PRN (17:43)
[2022-12-04] MEDS ORDERED: diazePAM 5 MG TABLET PO ONE (21:14)
[2022-12-04] MEDS: MELATONIN 5 MG TABLETS PO SCH (21:34)
[2022-12-04] MEDS: THIAMINE HCL 100 MG TABLET (FP) PO SCH (21:34)
[2022-12-05] MEDS: BUPRENORPHINE/NALOXONE 4 MG/1 MG FILM PACKET SL SCH ×2 (05:50→18:14)
[2022-12-05] MEDS: cloNIDine HCL 0.1 MG TABLET PO PRN ×2 (09:00→15:33)
[2022-12-05] MEDS: PRENATAL VITAMINS W/ FOLIC ACID TABLET (FP) PO SCH (09:01)
[2022-12-05] MEDS: NICOTINE 14 MG/24 HOURS TOPICAL PATCH TD SCH (09:01)
[2022-12-05] MEDS: hydrOXYzine PAMOATE 25 MG CAPSULE (FP) PO PRN ×2 (09:03→18:24)
[2022-12-05] MEDS: NICOTINE POLACRILEX 4 MG GUM BUC PRN ×3 (09:03→15:34)
[2022-12-05] MEDS: METHOCARBAMOL 500 MG TABLET PO PRN ×2 (09:03→15:33)
[2022-12-05] MEDS: MELATONIN 5 MG TABLETS PO SCH (22:09)
[2022-12-05] MEDS: THIAMINE HCL 100 MG TABLET (FP) PO SCH (22:09)
[2022-12-06] MEDS ORDERED: BUPRENORPHINE/NALOXONE 8 MG/2 MG FILM PACKET SL ONE (06:00)
[2022-12-06] MEDS: NICOTINE 14 MG/24 HOURS TOPICAL PATCH TD SCH (09:29)
[2022-12-06] MEDS: PRENATAL VITAMINS W/ FOLIC ACID TABLET (FP) PO SCH (09:29)
[2022-12-06 12:54] VITALS: BP 119/60; PULSE 85; RESP 17; TEMP 97.1
== END 2022-12-06 13:05 | disposition other institution (70) | DRG 773 ==
LOC: YASAS 12:42 → Y6N 16:15
PROVIDERS: ADMIT Allergy & Immunology; ATTEND Allergy & Immunology
PROC: HZ2ZZZZ Detoxification Services for Substance Abuse Treatment (ICD-10-PCS; principal; 2022-12-02)
DX: F11.23 Opioid dependence with withdrawal (principal); F14.20 Cocaine dependence, uncomplicated; F13.20 Sedative, hypnotic or anxiolytic dependence, uncomplicated; F12.20 Cannabis dependence, uncomplicated; F16.10 Hallucinogen abuse, uncomplicated; F17.210 Nicotine dependence, cigarettes, uncomplicated; F39 Unspecified mood [affective] disorder; F19.282 Other psychoactive substance dependence with psychoactive substance-induced sleep disorder; F19.24 Other psychoactive substance dependence with psychoactive substance-induced mood disorder; Z59.00 Homelessness unspecified; Z88.6 Allergy status to analgesic agent
CPT/HCPCS: 36415; 80053; 85027; 86780; 87635

== ENCOUNTER 2022-12-06 13:07 | Inpatient (IN) | payer OTHER ==
[2022-12-06] MEDS ORDERED: IBUPROFEN 600 MG TABLET (FP) PO PRN (13:34)
[2022-12-06] MEDS ORDERED: AMMONIUM LACTATE 12% LOTION 225 GM BOTTLE TP PRN (13:34)
[2022-12-06] MEDS ORDERED: BENZONATATE 200 MG CAPSULE PO PRN (13:34)
[2022-12-06] MEDS ORDERED: LOPERAMIDE HCL 2 MG CAPSULE PO PRN (13:34)
[2022-12-06] MEDS ORDERED: COLLOIDAL OATMEAL 1 BAR EACH TP PRN (13:34)
[2022-12-06] MEDS ORDERED: BENZOCAINE/MENTHOL (CHLORASEPTIC ) LOZENGE MM PRN (13:34)
[2022-12-06] MEDS ORDERED: MAGNESIUM HYDROX 2400MG/30ML ORAL SUSPENSION 30 ML CUP PO PRN (13:34)
[2022-12-06] MEDS ORDERED: NALOXONE HCL 0.4 MG/ML VIAL IVPUSH PRN (13:34)
[2022-12-06] MEDS ORDERED: METHOCARBAMOL 500 MG TABLET PO PRN (13:34)
[2022-12-06] MEDS ORDERED: NALOXONE HCL (KLOXXADO) 8 MG SPRAY NS PRN (13:34)
[2022-12-06] MEDS ORDERED: POLYETHYLENE GLYCOL (HEALTHYLAX) 3350 17 GM PACKET PO PRN (13:34)
[2022-12-06] MEDS ORDERED: guaiFENesin 600 MG TABLET.ER (FP) PO PRN (13:34)
[2022-12-06] MEDS ORDERED: IBUPROFEN 400 MG TABLET (FP) PO PRN (13:34)
[2022-12-06] MEDS ORDERED: MAG HYDROX/AL HYDROX/SIMETH 30 ML UNIT-DOSE CUP PO PRN (13:34)
[2022-12-06] MEDS ORDERED: NICOTINE 14 MG/24 HOURS TOPICAL PATCH TD PRN (13:34)
[2022-12-06] MEDS: hydrOXYzine PAMOATE 25 MG CAPSULE (FP) PO PRN (18:24)
[2022-12-06] MEDS: NICOTINE POLACRILEX 2 MG GUM BUC PRN ×2 (18:31→20:36)
[2022-12-06] MEDS: THIAMINE HCL 100 MG TABLET (FP) PO SCH (21:22)
[2022-12-06] MEDS: MELATONIN 5 MG TABLETS PO SCH (21:22)
[2022-12-07] MEDS: hydrOXYzine PAMOATE 25 MG CAPSULE (FP) PO PRN ×2 (00:52→18:16)
[2022-12-07] MEDS: ACETAMINOPHEN 325 MG TABLET (FP) PO PRN (00:52)
[2022-12-07] MEDS: PRENATAL VITAMINS W/ FOLIC ACID TABLET (FP) PO SCH (09:49)
[2022-12-07] MEDS ORDERED: BUPRENORPHINE/NALOXONE 8 MG/2 MG FILM PACKET SL SCH (10:00)
[2022-12-07] MEDS: NICOTINE POLACRILEX 2 MG GUM BUC PRN ×3 (12:05→19:45)
[2022-12-07] MEDS: BUPRENORPHINE/NALOXONE 8 MG/2 MG FILM PACKET SL SCH ×2 (18:16→21:16)
[2022-12-07] MEDS: THIAMINE HCL 100 MG TABLET (FP) PO SCH (21:15)
[2022-12-07] MEDS: MELATONIN 5 MG TABLETS PO SCH (21:15)
[2022-12-08] MEDS: BUPRENORPHINE/NALOXONE 8 MG/2 MG FILM PACKET SL SCH ×3 (06:20→21:21)
[2022-12-08] MEDS: PRENATAL VITAMINS W/ FOLIC ACID TABLET (FP) PO SCH (09:41)
[2022-12-08] MEDS: hydrOXYzine PAMOATE 25 MG CAPSULE (FP) PO PRN ×2 (09:42→19:11)
[2022-12-08] MEDS: NICOTINE POLACRILEX 2 MG GUM BUC PRN ×2 (13:07→23:11)
[2022-12-08] MEDS: MELATONIN 5 MG TABLETS PO SCH (21:20)
[2022-12-08] MEDS: THIAMINE HCL 100 MG TABLET (FP) PO SCH (21:20)
[2022-12-09] MEDS: BUPRENORPHINE/NALOXONE 8 MG/2 MG FILM PACKET SL SCH ×3 (06:36→21:17)
[2022-12-09] MEDS: hydrOXYzine PAMOATE 25 MG CAPSULE (FP) PO PRN ×2 (09:08→21:16)
[2022-12-09] MEDS: PRENATAL VITAMINS W/ FOLIC ACID TABLET (FP) PO SCH (09:08)
[2022-12-09] MEDS: NICOTINE POLACRILEX 2 MG GUM BUC PRN ×2 (09:08→17:42)
[2022-12-09] MEDS: MELATONIN 5 MG TABLETS PO SCH (21:16)
[2022-12-09] MEDS: THIAMINE HCL 100 MG TABLET (FP) PO SCH (21:16)
[2022-12-09] MEDS: MIRTAZAPINE 15 MG TABLET (FP) PO SCH (21:17)
[2022-12-10] MEDS: BUPRENORPHINE/NALOXONE 8 MG/2 MG FILM PACKET SL SCH ×3 (06:29→21:37)
[2022-12-10] MEDS: PRENATAL VITAMINS W/ FOLIC ACID TABLET (FP) PO SCH (09:01)
[2022-12-10] MEDS: NICOTINE POLACRILEX 2 MG GUM BUC PRN ×2 (13:24→21:50)
[2022-12-10] MEDS: hydrOXYzine PAMOATE 25 MG CAPSULE (FP) PO PRN ×2 (13:25→21:37)
[2022-12-10] MEDS: THIAMINE HCL 100 MG TABLET (FP) PO SCH (21:37)
[2022-12-10] MEDS: MELATONIN 5 MG TABLETS PO SCH (21:37)
[2022-12-10] MEDS: MIRTAZAPINE 15 MG TABLET (FP) PO SCH (21:37)
[2022-12-11] MEDS: BUPRENORPHINE/NALOXONE 8 MG/2 MG FILM PACKET SL SCH ×3 (07:16→21:18)
[2022-12-11] MEDS: hydrOXYzine PAMOATE 25 MG CAPSULE (FP) PO PRN ×3 (07:23→21:24)
[2022-12-11] MEDS: NICOTINE POLACRILEX 2 MG GUM BUC PRN ×4 (09:16→21:24)
[2022-12-11] MEDS: PRENATAL VITAMINS W/ FOLIC ACID TABLET (FP) PO SCH (09:16)
[2022-12-11] MEDS: MELATONIN 5 MG TABLETS PO SCH (21:17)
[2022-12-11] MEDS: MIRTAZAPINE 15 MG TABLET (FP) PO SCH (21:17)
[2022-12-11] MEDS: THIAMINE HCL 100 MG TABLET (FP) PO SCH (21:17)
[2022-12-12] MEDS: BUPRENORPHINE/NALOXONE 8 MG/2 MG FILM PACKET SL SCH ×3 (06:25→21:22)
[2022-12-12] MEDS: hydrOXYzine PAMOATE 25 MG CAPSULE (FP) PO PRN ×2 (06:43→21:21)
[2022-12-12] MEDS: NICOTINE POLACRILEX 2 MG GUM BUC PRN ×3 (06:43→21:35)
[2022-12-12] MEDS: PRENATAL VITAMINS W/ FOLIC ACID TABLET (FP) PO SCH (09:15)
[2022-12-12] MEDS: THIAMINE HCL 100 MG TABLET (FP) PO SCH (21:20)
[2022-12-12] MEDS: MELATONIN 5 MG TABLETS PO SCH (21:21)
[2022-12-12] MEDS: MIRTAZAPINE 15 MG TABLET (FP) PO SCH (21:21)
[2022-12-12] MEDS: ACETAMINOPHEN 325 MG TABLET (FP) PO PRN (22:24)
[2022-12-13] MEDS: BUPRENORPHINE/NALOXONE 8 MG/2 MG FILM PACKET SL SCH ×3 (05:58→21:40)
[2022-12-13] MEDS: hydrOXYzine PAMOATE 25 MG CAPSULE (FP) PO PRN ×2 (06:00→21:40)
[2022-12-13] MEDS: NICOTINE POLACRILEX 2 MG GUM BUC PRN ×4 (06:00→21:52)
[2022-12-13] MEDS: PRENATAL VITAMINS W/ FOLIC ACID TABLET (FP) PO SCH (09:47)
[2022-12-13] MEDS: ERYTHROMYCIN 0.5% OPHTHALMIC OINTMENT 3.5 GM TUBE OS SCH (10:07)
[2022-12-13] MEDS: MIRTAZAPINE 15 MG TABLET (FP) PO SCH (21:39)
[2022-12-13] MEDS: MELATONIN 5 MG TABLETS PO SCH (21:39)
[2022-12-13] MEDS: THIAMINE HCL 100 MG TABLET (FP) PO SCH (21:40)
[2022-12-14] MEDS: metFORMIN HCL 500 MG TABLET (FP) PO SCH (06:35)
[2022-12-14] MEDS: BUPRENORPHINE/NALOXONE 8 MG/2 MG FILM PACKET SL SCH ×3 (06:36→21:11)
[2022-12-14] MEDS: NICOTINE POLACRILEX 2 MG GUM BUC PRN ×4 (08:10→19:53)
[2022-12-14] MEDS: ERYTHROMYCIN 0.5% OPHTHALMIC OINTMENT 3.5 GM TUBE OS SCH (09:16)
[2022-12-14] MEDS: PRENATAL VITAMINS W/ FOLIC ACID TABLET (FP) PO SCH (09:16)
[2022-12-14] MEDS: hydrOXYzine PAMOATE 25 MG CAPSULE (FP) PO PRN ×2 (13:48→21:11)
[2022-12-14] MEDS: DOCUSATE SODIUM 100 MG CAPSULE (FP) PO PRN (16:39)
[2022-12-14] MEDS: THIAMINE HCL 100 MG TABLET (FP) PO SCH (21:10)
[2022-12-14] MEDS: MIRTAZAPINE 15 MG TABLET (FP) PO SCH (21:11)
[2022-12-14] MEDS: MELATONIN 5 MG TABLETS PO SCH (21:11)
[2022-12-15] MEDS: BUPRENORPHINE/NALOXONE 8 MG/2 MG FILM PACKET SL SCH (06:30)
[2022-12-15] MEDS: metFORMIN HCL 500 MG TABLET (FP) PO SCH (06:30)
[2022-12-15] MEDS: DOCUSATE SODIUM 100 MG CAPSULE (FP) PO PRN (06:34)
[2022-12-15] MEDS: NICOTINE POLACRILEX 2 MG GUM BUC PRN ×2 (06:35→09:08)
[2022-12-15 06:56] VITALS: RESP 18; TEMP 97.5
[2022-12-15] MEDS: PRENATAL VITAMINS W/ FOLIC ACID TABLET (FP) PO SCH (09:07)
[2022-12-15] MEDS: ERYTHROMYCIN 0.5% OPHTHALMIC OINTMENT 3.5 GM TUBE OS SCH (09:07)
[2022-12-15 09:14] VITALS: BP 109/76; PULSE 107
== END 2022-12-15 09:12 | disposition home or self-care (01) | DRG 772 ==
LOC: YASAS 13:07 → Y3W 13:08
PROVIDERS: ADMIT Allergy & Immunology; ATTEND Psychiatry & Neurology Pain Medicine
PROC: HZ42ZZZ Group Counseling for Substance Abuse Treatment, Cognitive-Behavioral (ICD-10-PCS; principal; 2022-12-06)
DX: F11.20 Opioid dependence, uncomplicated (principal); F13.20 Sedative, hypnotic or anxiolytic dependence, uncomplicated; F14.20 Cocaine dependence, uncomplicated; F16.10 Hallucinogen abuse, uncomplicated; F17.210 Nicotine dependence, cigarettes, uncomplicated; H00.015 Hordeolum externum left lower eyelid; E11.9 Type 2 diabetes mellitus without complications; Z79.84 Long term (current) use of oral hypoglycemic drugs; Z59.00 Homelessness unspecified
CPT/HCPCS: 82962